=== PATIENT | male | born 1940 | race Caucasian/White ===

== ENCOUNTER 2017-05-29 08:41 | Inpatient (IN) | payer OTHER ==
[2017-05-29] VITALS (12 sets, daily range): BP systolic 104–176; BP diastolic 61–95
[~2017-05-29] VITALS: Ht 170.2 cm; Wt 78.5 kg
[~2017-05-29 08:41] MED LIST: ADVAIR 250-501 EACH; ALBUTEROL SULFAT2 MG PO; ALBUTEROL2.5 MG/0.5 INH; ALPRAZOLAM 0.50.5 M1 PO; ASPIR 8181 MG PO; ATIVAN0.5 MG PO; ATROVENT HFA14 GM INH; AVELOX 400 MG400 M1 PO; AVELOX 400 MG400 MG PO; AZITHROMYCIN 2250 MG PO; BROVANA15 MCG/2 M INH; COLACE100 MG PO; COMBIVENT INH; DUONEB 2.5-0.5 M3 ML INH; ENOXAPARIN40 MG/0.1 SUBQ; FLOMAX0.4 MG PO; FLORASTOR250 MG PO; IPRATROPIU0.2 MG/1 M IH; KLOR-CON 1010 MEQ PO; LASIX 40 MG TAB40 M2 PO; LEVAQUIN 250 M250 MG PO; LEVAQUIN 500 M500 M2 PO; LEVAQUIN 750 M750 MG PO; MIRALAX17 GM PO; MONTELUKAST SOD10 MG PO; MUCINEX TA600 MG/TA2 PO; MUCINEX600 MG PO; NICOTINE TRANSD14 M1 TD; NOVOLOG100 UNIT/1 SUBQ; ONDANSETRON HCL4 M2 PO; PANTOPRAZOLE SO40 M1 PO; PREDNISONE 10 M10 M1 PO; PREDNISONE 10 M10 MG PO; PREDNISONE 20 M20 MG PO; PROTONIX40 M1 PO; PROVENTIL INH; PULMICORT0.5 MG/22 INH; QUESTRAN PACKET4 GM PO; ROBITUSSIN DM118 ML; SINGULAIR 10 MG10 M1 PO; SPIRIVA INH; STERAPRED5 MG PO; SYMBICORT160 MCG/4. INH; TAMSULOSIN HCL0.4 MG PO; TYLENOL325 MG PO; XOPENEX1.25 MG/3 IH
[2017-05-29 09:08] LABS: ABSOLUTE LYMPHOCYTES 0.8 thou/uL (0.8-5.3); ABSOLUTE MONOCYTES 0.6 thou/uL (0.0-1.2); ABSOLUTE NEUTROPHILS 5.2 thou/uL (1.6-8.1); BASOPHILS 0.5 %; EOSINOPHILS 0.7 %; HEMATOCRIT 38.6 % (42.0-52.0); HEMOGLOBIN 12.5 gm/dL (14.0-18.0); LYMPHOCYTES 11.5 %; MCH 26.6 pg (26.0-34.0); MCHC 32.3 g/dL (28.0-37.0); MCV 82.3 fL (80.0-100.0); MONOCYTES 9.4 %; MPV 8.1 fl. (7.2-11.1); NUCLEATED RBCS 0 /100WBC; PLATELET COUNT* 179 thou/uL (150-400); POLYS 77.9 %; RBC 4.69 mil/uL (4.50-6.00); RDW-CV 14.3 % (10.5-14.5); WBC 6.7 thou/uL (4.0-11.0)
[2017-05-29 10:51] LABS: ALBUMIN 3.8 g/dL (3.4-5.0); CALCIUM 8.6 mg/dL (8.5-10.1); POTASSIUM 4.4 mmol/L (3.5-5.1); TOTAL BILIRUBIN 0.9 mg/dL (<0.1-1.0); TOTAL PROTEIN 7.1 g/dL (6.4-8.2)
--- NOTE | 2017-05-29 11:40 | NUR ---
A WHITE MALE AGE 76 ADMITTED VIA CART FROM ER. PT REMANS VENTED.PT RESTLESS. ORDERS FOR PROPOFOL GTT OBTAINED.02 SATS 99 ON FIO2 AT 40%. CONSULTS CALLED FOR PULM AND UROLOGY.SMALL BLOOD LEAKAGE NOTED FROM [facility] OF PENIS DUE TO INABLITY TO INSERT HIDALGO CATHETER. FAMILY SUPPLIED ADMISSION INFO.WILL MONITOR FREQUENTLY.
[2017-05-29 12:15] LABS: BE -5.7 mmol/L (-2 to +3); PCO2 46.5 mmHg (35.0-45.0); PO2 89.6 mmHg (75.0-100.0)
[2017-05-29 12:16] LABS: pH 7.273 (7.340-7.450)
[2017-05-29 13:47] LABS: CALCIUM 8.3 mg/dL (8.5-10.1); POTASSIUM 4.4 mmol/L (3.5-5.1)
[2017-05-29 15:41] LABS: BE -3.1 mmol/L (-2 to +3); HCO3 23.3 mmol/L (22.0-26.0); PCO2 47.4 mmHg (35.0-45.0)
--- NOTE | 2017-05-29 19:41 | NUR ---
PT REMAINS SEDATED ON VENT. DR ROMERO UROLOGY HERE EARLIER AND WAS ABLE TO INSERT A 18 GA COUDE WITH VIET URINE RETURN.PT TURNED THROUGH SHIFT. FAMILY HAS BEEN HERE MOST OF DAY AND HAS AT THIS TIME GONE HOME FOR THE EVENING. WAS GIVEN ICU PHONE NUMBER CARD WITH VISITING HOURS HAND WRITTEN ON CHART.FREQUENT ORAL CARE GIVEN.
[2017-05-29 22:07] LABS: URINE BILIRUBIN NEGATIVE (Negative); URINE BLOOD 1+ (Negative); URINE CLARITY CLEAR; URINE COLOR STRAW; URINE GLUCOSE-RANDOM NEGATIVE (Negative); URINE KETONES 1+ (Negative); URINE LEUKOCYTES-REFLEX TRACE (Negative); URINE NITRITE-REFLEX NEGATIVE (Negative); URINE PROTEIN NEGATIVE (Negative); URINE UROBILINOGEN 0.2 E.U./dl (0.2-1.0)
[2017-05-29 22:39] LABS: CASTS None Seen /LPF (None Seen); SQUAMOUS 0-3 Few /LPF (0-3); URINE WBC-REFLEX 6-15 Few /HPF (0-5)
[2017-05-29 22:40] LABS: BACTERIA-REFLEX 1-9 Few /HPF (None Seen); CRYSTALS None Seen /LPF (None Seen); URINE RBC None Seen /HPF (0-2)
[2017-05-30] VITALS (22 sets, daily range): BP systolic 97–140; BP diastolic 50–84
[2017-05-30 04:03] LABS: CALCIUM 8.5 mg/dL (8.5-10.1); POTASSIUM 4.1 mmol/L (3.5-5.1)
[2017-05-30 04:21] LABS: HEMATOCRIT 37.8 % (42.0-52.0); HEMOGLOBIN 12.2 gm/dL (14.0-18.0); MCH 26.7 pg (26.0-34.0); MCHC 32.3 g/dL (28.0-37.0); MCV 82.9 fL (80.0-100.0); MPV 8.1 fl. (7.2-11.1); NUCLEATED RBCS 0 /100WBC; PLATELET COUNT* 144 thou/uL (150-400); RBC 4.56 mil/uL (4.50-6.00); RDW-CV 14.6 % (10.5-14.5); WBC 3.5 thou/uL (4.0-11.0)
[2017-05-30 04:43] LABS: BE -3.7 mmol/L (-2 to +3); HCO3 22.5 mmol/L (22.0-26.0); PCO2 45.1 mmHg (35.0-45.0); PO2 75.8 mmHg (75.0-100.0); pH 7.315 (7.340-7.450)
--- NOTE | 2017-05-30 05:53 | NUR ---
MINIMAL PROGRESSION TOWARDS GOALS. ASSESSMENTS AND VS OBTAINED, SEE CHARTING. SUPERVISOR VARNISH ON AND TRACING SR. PT REMAINS ON VENT WITH ORDERED SETTINGS. PT REMAINS SEDATED ON PROPOFOL AND VERSED. OG IN AND TI LIS. NO CHANGES IN PT CONDITION THROUGH OUT THE NIGHT.
[2017-05-30 06:57] LABS: ABSOLUTE LYMPHOCYTES 0.6 thou/uL (0.8-5.3); ABSOLUTE MONOCYTES 0.1 thou/uL (0.0-1.2); ABSOLUTE NEUTROPHILS 2.8 thou/uL (1.6-8.1); ATYPICAL LYMPHS 1 %; PLATELET ESTIMATE DECREASED
--- NOTE | 2017-05-30 09:14 | NUR ---
WEANING DOWN ON SEDATION FOR SEDATION VACATION AND TRIAL, PATIENT APPEARS TO BE SEIZING. DR SÁNCHEZ NOTIFIED, HEAD CT ORDERED, WILL SEE WHAT RESULTS SHOW AND REPORT TO DR SÁNCHEZ.
--- NOTE | 2017-05-30 09:17 | NUR ---
UGO BAPTISTE ALSO APPLIED TO PATIENT, TEMP AXILLARY WAS 94.4
--- NOTE | 2017-05-30 13:50 | EKG ---
[place] [address] ELECTROCARDIOGRAM REPORT Name: LUISA BRODY Room: [address] ADM IN M.R.#: [id number] Admission: 05/29/17 Attend Phys: Itz Pace MD Discharge: Date of : 42 Report #: [id number] THIS REPORT FOR: //name// [facility] ED Test Date: 2017-05-29 Test Time: 09:16:44 Pat Name: LUISA BRODY Department: Room: [facility] Gender: M Hospice Entrance Attendant: : 1940 Requested By: Lina Valenzuela Order Number: [id number] MD: William Roque Measurements Intervals [place] Rate: 136 P: 54 AL: 138 QRS: 236 QRSD: 88 T: -12 QT: 292 QTc: 440 Interpretive Statements Sinus tachycardia Low voltage, extremity and precordial leads Nonspecific T abnormalities, inferior leads Inferior infarct age indeterminate possible Baseline wander in lead(s) III Compared to ECG 09/21/2015 07:17:44 Low QRS voltage now present T-wave abnormality now present Electronically Signed On 05-30-2017 13:50:23 RULING TECHNICIAN by William Roque [email or web address] <ELECTRONICALLY SIGNED> By: William Roque MD, FACC 05/30/17 1350 5 5 William Roque MD, FACC /EPI
--- NOTE | 2017-05-30 13:51 | EKG ---
[place] [address] ELECTROCARDIOGRAM REPORT Name: LUISA BRODY Room: [address] ADM IN M.R.#: [id number] Admission: 05/29/17 Attend Phys: Itz Pace MD Discharge: Date of : 42 Report #: [id number] THIS REPORT FOR: //name// [facility] ED Test Date: 2017-05-29 Test Time: 10:05:49 Pat Name: LUISA BRODY Department: Room: [address] Gender: M Gang Supervisor Pipe Lines: STUDENT : 1940 Requested By: Lina Valenzuela Order Number: [id number] MD: William Roque Measurements Intervals [place] Rate: 122 P: 73 ID: 140 QRS: -84 QRSD: 84 T: 51 QT: 317 QTc: 452 Interpretive Statements Sinus tachycardia Inferior infarct age indeterminate Low voltage, extremity leads RSR' in V1 or V2, right VCD or RVH Compared to ECG 09/21/2015 07:17:44 Low QRS voltage now present Right ventricular hypertrophy now present RSR' in V1 or V2 now present Intraventricular conduction delay no longer present ST (T wave) deviation no longer present Electronically Signed On 05-30-2017 13:51:35 SOFTWARE SUPPORT TECHNICIAN by William Roque [email or web address] <ELECTRONICALLY SIGNED> By: William Roque MD, [facility] 05/30/17 1351 1005 1005 William Roque MD, [facility] /EPI
--- NOTE | 2017-05-30 18:18 | NUR ---
PATIENT HAS SOMEWHAT PROGRESSED WELL TOWARDS GOALS. PATIENT SEEMS TO BE HAVING SEZIURES, DR ESTRADA CONSULTED AND HE ORDERED LABS AND EEG AND SAID HE WOULD PUT IN KEPPRA. PATIENT HAS BEAR HUGGER ON DUE TO INABILITY TO KEEP TEMPS ABOVE 94.4 DEGREES FARENHEIT. SEDATION INCREASED AND SEDATION VACATION WAS UNABLE TO BE DONE DUE TO INCREASED SEZIURES WHEN WEANING DOWN OFF VERRSED AND PROPOFOL. VENT AND RESTRAINTS REMAIN IN PLACE. FAMILY HAS BEEN HERE AND UPDATED THROUGHOUT THE DAY. BED IN LOWEST POSITION, BED ALARM ON, BASE REMOVER IN PLACE.
[2017-05-31] VITALS (17 sets, daily range): BP systolic 100–156; BP diastolic 51–74
[2017-05-31 04:25] LABS: HEMATOCRIT 32.3 % (42.0-52.0); MCH 26.8 pg (26.0-34.0); MCV 78.6 fL (80.0-100.0); MPV 7.3 fl. (7.2-11.1); NUCLEATED RBCS 0 /100WBC; PLATELET COUNT* 164 thou/uL (150-400); RBC 4.11 mil/uL (4.50-6.00); RDW-CV 14.6 % (10.5-14.5); WBC 9.5 thou/uL (4.0-11.0)
[2017-05-31 04:36] LABS: CREATININE 0.8 mg/dL (0.6-1.3); POTASSIUM 3.8 mmol/L (3.5-5.1)
--- NOTE | 2017-05-31 05:17 | NUR ---
MINIMAL PROGRESSION TOWARDS GOALS. ASSESSMENT AND VS OBTAINED THROUGH OUT THE NIGHT TEMP WAS OBTAINED HOURLY. AMA BAPTISTE REMAINED ON PT TILL 0400. FISHING VESSEL CAPTAIN ON AND TRACING SR. PT REMAINS SEDATED ON VERSED AND PROPOFOL. OG HAS BROWN, COFFEE GROUND APPEARS AND A SAMPLE WAS SENT TO LAB FOR A GUAIC WHICH CAME BACK POSITIVE. BATH WASN'T GIVEN DUE TO TEMP INSTABILITY. NO SIEZURE ACTIVITY NOTICED THROUGH OUT THE NIGHT. KEPPRA WAS GIVEN ORDERED.
--- NOTE | 2017-05-31 05:40 | NUR ---
VERSED TURNED OFF FOR A 0800 WEANING TRIAL. PROPOFOL STILL RUNNING.
[2017-05-31 05:44] LABS: ABSOLUTE LYMPHOCYTES 0.5 thou/uL (0.8-5.3); ABSOLUTE MONOCYTES 0.1 thou/uL (0.0-1.2); ABSOLUTE NEUTROPHILS 8.9 thou/uL (1.6-8.1); ANISOCYTOSIS 1+; PLATELET ESTIMATE ADEQUATE; POIKILOCYTOSIS 1+
--- NOTE | 2017-05-31 10:00 | NUR ---
SEDATION VACATION-ICU START TIME: 0700 PRE VITALS: 126/64 BP, PULSE 85, RESPIRATIONS 18, O2 SATURATION 93% STOP TIME: 1145 POST VITALS: 140/72 BP, PULSE 82, RESPIRATIONS 30, 02 SATURATION 94% GCS: 8 DURATION [id number] COMMENT: PATIENT WAS AROUSABLE BUT UNABLE TO TRACK WITH HIS EYES AND OR APPLY ANY PRESSURE WITH HAND GRASPS. WILL ATTEMPT WEANING TRIAL AGAIN AT 0800 TOMORROW.
--- NOTE | 2017-05-31 10:33 | CON ---
[facility] [address] [place] [address] CONSULTATION Name: LUISA BRODY Room: [address] IN M.R.#: [id number] Admission: 05/29/17 Attend Phys: Itz Pace MD Discharge: Date of : 42 Report #: [id number] THIS REPORT FOR: //name// CC: Itz Pace [facility] unknown DATE OF SERVICE: 05/29/2017 REQUESTING PHYSICIAN: Izt Pace M.D. REASON FOR CONSULTATION: Acute respiratory failure, on ventilator. DISCUSSION: The patient is a 76-year-old man who has a history of known severe COPD. He is O2 dependent, though I am not sure if he is steroid dependent or not. I believe he is a former smoker. He presented to the Emergency Department this morning via private vehicle with marked increased shortness of breath. Apparently, it started yesterday. He has either BiPAP or Trilogy at home. Apparently had trouble using it last night. He was in marked distress when seen in the Emergency Department. It does not appear that he had complaints of any pain. RT informs me when they saw him, he was in marked distress, was tripoding. Was placed on BiPAP in the ED. It did not improve his condition. He subsequently was intubated by the Emergency Department physician. Follow up chest x-ray was obtained as well. He was transferred over to the Intensive Care Unit prior to the blood gas being obtained. Currently because he is sedated on the ventilator, he is not able to provide any history at this time. Our group has seen him previously when he has been hospitalized here. I know he has been seen in our office in the past, unknown if he has been within over the last year or so. He has very severe COPD. Based on records, I have to review here at [facility], prior spirometry been consistent with very significant obstructive process with his FEV1 of only 29% of predicted (that was at least 3 years ago). He is hypoxic and chronically hypercapnic as well. It appears when he was here in the hospital in the spring of 2015 and seen by our group, a BiPAP or Trilogy was arranged for him. Unknown how compliant he has been with that on a regular basis. Also unknown if he is followed up in our office with that. He has also had lung masses and adenopathy noted. I do not believe he has ever had anything biopsy given the severity of his lung disease. However, imaging done in the past at one point did show improvement in the findings, so not complete resolution. He last had a CT scan done of his chest, which was requested by his family nurse practitioner at almost a year ago. At that time, it did show lesion in the left upper [place] [address] CONSULTATION Name: LUISA BRODY Room: [address] IN .R.#: [id number] Admission: 05/29/17 Attend Phys: Itz Pace MD Discharge: Date of : 42 Report #: [id number] MEDICAL HISTORY: Besides his severe COPD, his history is remarkable for prior hip repair, anxiety, BPH, prior episodes of pneumonia and prior tonsillectomy. At this time, I do not have a complete list of his medications as it has not been verified. Currently, he does have a nebulizer at home with DuoNeb, albuterol tablets 2 mg, guaifenesin, montelukast, Symbicort, Lasix, docusate, Florastor, MiraLax, Protonix, budesonide. SOCIAL HISTORY: Reportedly quit smoking. Had been a heavy smoker in the past. FAMILY HISTORY: Per old notes was negative for heart disease. Positive for lung cancer. 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 No service. Had smoked upwards to 2 packs of cigarettes per day. Old notes indicate his have been a heavy smoker as well. Unknown if she was still smoking or she had secondhand smoke exposure. REVIEW OF SYSTEMS: Unable to obtain from the patient. PHYSICAL EXAMINATION: GENERAL: The patient is seen on the ventilator. He is a thin, chronically ill-appearing man. Currently sedated with propofol and also received some fentanyl. Not responding to me. He is on no pressors. HEENT: Normocephalic and atraumatic. Sclerae are nonicteric. Mucous membranes look dry. He is orally intubated, also has an oral gastric tube in place. NECK: Negative for adenopathy. No JVD is noted. Neck muscles well developed. HEART: Tones are distant. He is mildly tachycardic. No S3 is heard. LUNGS: Reveal breath sounds to be markedly diminished. He has inspiratory and expiratory wheezes heard. Excursion is equal. No subcutaneous emphysema is noted. His peak airway pressures are running on the high side in the mid 30s. ABDOMEN: Soft. Does not appear to have any hepatosplenomegaly noted. Durant catheter is in place. EXTREMITIES: He has no clubbing. Radial pulses are present. Lower extremities are thin. He has some muscle wasting. No definite edema is noted. SKIN: Warm and dry. NEUROLOGIC: He is sedated. LABORATORY AND X-RAY FINDINGS: Blood gases just done on the ventilator. He has a pH 7.27, pCO2 of 47, pO2 of 90, bicarbonate of 21 with a saturation of 93%. That was on assist control rate of 14, Tylenol 500, PEEP of 5, and FiO2 of 40%. On his chemistry, BUN is 17, creatinine 1.0. Potassium is 4.4. Transaminases normal. Lactic acid 2.4. White blood cell count 6700, hemoglobin 12.5, hematocrit 38.6, platelets 179,000. Chest x-ray shows [place] [address] CONSULTATION Name: LUISA BRODY Room: [address] IN [facility].#: [id number] Admission: 05/29/17 Attend Phys: Itz Pace MD Discharge: Date of : 41 Report #: [id number] position. He has marked emphysematous changes noted bilaterally. Some cardiomegaly is noted. Blood cultures have been sent. CURRENT INPATIENT MEDICATIONS: IV propofol, methylprednisolone 62.5 mg IV every 8 hours, Zosyn, DuoNeb every 4 hours, metolazone drip if needed, p.r.n. Zofran. IMPRESSION: 1. Acute respiratory failure superimposed on chronic respiratory failure. Baseline has very severe COPD. He is on O2, though not clear if he is steroid dependent or not. He is on chronic O2 at home as well as some nighttime ventilatory support. 2. Abnormal CT scan. Had left upper lobe mass, which had been increasing in size, associated with adenopathy. Findings were worrisome for malignancy. 3. Past history of tobacco abuse. RECOMMENDATIONS: 1. We will make the ventilator adjustments. We will try dropping his tidal volume increasing rate. Try to keep the airway pressures down. 2. Continue the DuoNeb every 4 hours with p.r.n. albuterol. 3. We will also add Brovana since it appears he may be on Symbicort at home. 4. Continue support. We will see how he does clinically. Hopefully, can work on weaning and successful extubation within the next several days. 5. Long-term if unable to successful weaning and extubate, will need to determine what his long-term wishes were. Given his severe COPD, it certainly be a poor candidate for long-term ventilation, trach, etc. 6. Depending on how he does, will need followup imaging such as CT chest. However, given his severe COPD, certainly a poor candidate for any invasive studies and certainly not a surgical candidate. <ELECTRONICALLY SIGNED> By: Dionna Wells MD 05/31/17 1033 1234 [id number] Huerta MD /nt
--- NOTE | 2017-05-31 10:40 | NUR ---
PT ADMITTED 05/29 WITH RESP FAILURE, WAS INTUBATED IN THE E.D. PT REMAINS ON VENT. SPOKE WITH IN THE ROOM. PT HAS HOME 02 AND TRILOGY FROM [facility]. SHE SAID PT HAS DONE FAIRLY WELL AT HOME IS ABLE TO BE UP AND ABOUT IN THE HOUSE. SOME DIFFICULTY IN KEEPING FOCUSED ON CURRENT COVERSATION SHE TENDS TO START TALKING ABOUT SOMETHING ELSE. SHE SAID SHE HAS NO QUESTIONS ABOUT PLAN OF CARE. PT'S SON WAS HERE EARLIER BUT HAD STEPPED OUT OF THE ROOM. DISCUSSED ROLE OF CASE MGT, WILL CONTINUE TO FOLLOW.
[2017-05-31 11:30] LABS: HEMATOCRIT 33.7 % (42.0-52.0); HEMOGLOBIN 11.2 gm/dL (14.0-18.0); MCH 26.2 pg (26.0-34.0); MCHC 33.2 g/dL (28.0-37.0); MCV 79.1 fL (80.0-100.0); MPV 7.4 fl. (7.2-11.1); RBC 4.27 mil/uL (4.50-6.00); RDW-CV 14.5 % (10.5-14.5); WBC 8.6 thou/uL (4.0-11.0)
[2017-05-31 11:37] LABS: BE -0.6 mmol/L (-2 to +3); HCO3 25.5 mmol/L (22.0-26.0); PCO2 48.4 mmHg (35.0-45.0); PO2 70.8 mmHg (75.0-100.0)
--- NOTE | 2017-05-31 18:00 | NUR ---
PT WEANING TRIAL CHARTED PRIOR. PT REMAINS ON 6 MG/H VERSED AND IS AROUSABLE. PT DID NOT APPEAR TO BE IN ANY PAIN. PROTONIX DRIP AND GI CONSULT INITIATED THIS MORNING. GI WILL DO A EGD TOMORROW MORNING PENDING NEURO'S APPROVAL. THIS INFORMATION WAS RELAYED TO NEURO. NEURO MD CALLED BACK AND SAID THAT GI CAN CALL THEM. ANOTHER PAGE WAS PLACED WITH GI THIS AFTERNOON AND HAVE NOT HEARD BACK. THIS INFORMATION WAS GIVEN TO ONCOMING NURSE. PT'S ASSESSMENT CHARTED. ABDOMEN IS DISTENDED, HYPOACTIVE BOWL SOUNDS, AND STILL CONTINUES TO HAVE COFFEE GROUND SECRETIONS THROUGH OG. PT'S HAS BEEN EDUCATED THROUGHOUT THE DAY. NO SIGNS OF SEIZURE LIKE ACTIVITY TODAY. PPN INITIATED.
[2017-06-01] VITALS (18 sets, daily range): BP systolic 104–160; BP diastolic 57–88
[2017-06-01 03:26] LABS: HEMATOCRIT 35.2 % (42.0-52.0); HEMOGLOBIN 10.7 gm/dL (14.0-18.0); MCH 26.6 pg (26.0-34.0); MCHC 30.4 g/dL (28.0-37.0); MPV 8.4 fl. (7.2-11.1); RBC 4.02 mil/uL (4.50-6.00); RDW-CV 15.8 % (10.5-14.5); WBC 7.5 thou/uL (4.0-11.0)
[2017-06-01 03:31] LABS: ALBUMIN 2.6 g/dL (3.4-5.0); CALCIUM 7.9 mg/dL (8.5-10.1); CREATININE 0.8 mg/dL (0.6-1.3); MAGNESIUM 2.7 mg/dL (1.8-2.4); TOTAL BILIRUBIN 0.4 mg/dL (<0.1-1.0); TOTAL PROTEIN 5.5 g/dL (6.4-8.2)
[2017-06-01 03:50] LABS: MCV 87.6 fL (80.0-100.0)
[2017-06-01 03:55] LABS: HCO3 28.1 mmol/L (22.0-26.0); pH 7.363 (7.340-7.450)
[2017-06-01 03:58] LABS: PCO2 50.5 mmHg (35.0-45.0)
--- NOTE | 2017-06-01 05:07 | NUR ---
PATIENT PROGRESSING TOWARDS GOALS. VERSED GTT ON MAX. WILL START TITRATING DOWN FOR WEANING TRAIL IN A.M. POSSIBLE EDG IN A.M ONCE NEURO APPROVES. PT OG CONTINUES TO HAVE COFFEE GOUND APPEARANCE. SLIGHT DROP IN HGB. BS HAVE BEEN ELEVATED. BP, RR, HR, 02 ALL WNL. URINE OUTPUT ADEQUATE. SPOKE WITH MRS. BRODY ABOUT PT CARE OF PLAN. SHE VOICED UNDERSTANDING, HAD NO FURTHER CONCERNS. GAVE HOURLY ORAL CARE/SUCTION, Q2H HOUR TURNS. SEIZURE PRECAUTIONS IN PLACE. WILL CONTINUE TO MONITOR CLOSELY.
[2017-06-01 14:52] LABS: POTASSIUM 3.9 mmol/L (3.5-5.1)
--- NOTE | 2017-06-01 15:33 | NUR ---
SEDATION VACATION STARTED AT 0500 THIS AM. VERSED WAS WEANED DOWN AND TURNED OFF AT 0500. PATIENT WAS COMPLETELY AWAKE AROUND 1000. BLOOD PRESSURE SLIGHTLY ELEVATED AT 142/71 PULSE 58, RESPIRATIONS 21. PATIENT WAS BRADYCARDIC BEFORE START OF SEDATION VACATION IN THE MID 40S, PRESSURES WERE 137/64 RESPIRATIONS WERE 18. GSC OF 14.
--- NOTE | 2017-06-01 15:42 | NUR ---
PATIENT GETTING EGD AT BEDSIDE AT THIS TIME BY DR BELL.
--- NOTE | 2017-06-01 18:11 | NUR ---
PATIENT HAS PROGRESSED WELL TOWARDS GOALS TODAY. DR BELL DOES NOT WANT OG TUBE REPLACED AFTER EGD TODAY, WEANING TRIAL IN THE AM, VERSED GTT AND PROTONIX GTT D/C, PATIENT STARTED ON PROPOFOL GTT FOR SEDATION. WAS AWAKE AND FOLLOWING ALL COMMANDS THIS AM. NO APPARENT PAIN, NAUSEA OR SHORTNESS OF AIR. IS SOUNDING A BIT WHEEZY. SINUS FLOR TO SINUS RHYTHM MOST OF THE DAY. BED IN LOWEST POSITION, CALL LIGHT IN REACH, WILL CONTINUE TO MONITOR.
[2017-06-02] VITALS (11 sets, daily range): BP systolic 124–180; BP diastolic 69–95
[2017-06-02 02:08] LABS: ADENOVIRUS Negative (Negative); INFLUENZA A Negative (Negative); INFLUENZA B Negative (Negative); METAPNEUMOVIRUS Negative (Negative); PARAINFLUENZA 1 Negative (Negative); PARAINFLUENZA 2 Negative (Negative); PARAINFLUENZA 3 Negative (Negative); RHINOVIRUS Negative (Negative); RSV A Positive (Negative); RSV B Negative (Negative)
[2017-06-02 03:22] LABS: HEMATOCRIT 31.7 % (42.0-52.0); HEMOGLOBIN 10.6 gm/dL (14.0-18.0); MCH 26.7 pg (26.0-34.0); MCHC 33.3 g/dL (28.0-37.0); MPV 7.7 fl. (7.2-11.1); RBC 3.96 mil/uL (4.50-6.00); RDW-CV 14.5 % (10.5-14.5); WBC 7.7 thou/uL (4.0-11.0)
[2017-06-02 03:25] LABS: MCV 80.2 fL (80.0-100.0)
[2017-06-02 03:43] LABS: ALBUMIN 2.4 g/dL (3.4-5.0); CALCIUM 7.9 mg/dL (8.5-10.1); CREATININE 0.7 mg/dL (0.6-1.3); MAGNESIUM 3.1 mg/dL (1.8-2.4); POTASSIUM 4.6 mmol/L (3.5-5.1); TOTAL BILIRUBIN 0.7 mg/dL (<0.1-1.0); TOTAL PROTEIN 5.7 g/dL (6.4-8.2)
--- NOTE | 2017-06-02 07:09 | NUR ---
PATIENT CURRENTLY ON PROPOFOL 10 MCG/KG/MIN. TITRATING TO LOWEST DOSE POSSIBLE FOR WEANING TRIAL THIS MORNING. PT OPENS EYES WITH STIMULATION. VITAL SIGNS ALL WNL. NO CRITICAL A.M LABS. RECEIVED FULL BATH AND BED CHANGE. GAVE Q2H TURNS, ORAL CARE. WILL CONTINUE TO MONITOR CLOSELY. FALL/SEIZURE PRECAUTIONS IN PLACE.
--- NOTE | 2017-06-02 07:27 | CON ---
[address] [address] CONSULTATION Name: LUISA BRODY Janet Room: [address] IN M.R.#: [id number] Admission: 05/29/17 Attend Phys: Itz Pace MD Discharge: Date of : 41 Report #: [id number] THIS REPORT FOR: //name// CC: Itz Pace [facility] unknown DATE OF SERVICE: 05/30/2017 HISTORY OF PRESENT ILLNESS: This is a 76-year-old male patient who is unable to provide any history. History is by talking to the nurses as well as reviewing the records. We will try to reach the family. This patient has a baseline COPD and he is on oxygen as well as BiPAP at home. He was admitted with exacerbation of COPD. He was intubated and put on propofol. When they tried to take it off, did notice that he may be having a seizure on the left side. His EEG was done, which does not show any active epileptiform activity, as I understand from the cotton program technician; it is not downloaded yet. REVIEW OF SYSTEMS: Positive for what looks like a severe COPD. He had pneumonia several times. He has frequent bronchitis. He has a large prostate and that was his 14-point review of systems, which I can get from the record. FAMILY HISTORY: Negative for any seizures, the best I can tell from the record. FAMILY AND SOCIAL HISTORY: Unavailable and we will try to contact the family. PHYSICAL EXAMINATION: NEUROLOGIC: His examination is very limited. He is unresponsive to any painful or verbal stimuli. His pupils are small and nonreactive. He has no meningeal sign. He has no reflex. He is intubated. GENERAL: He is a reasonably well-built individual. VITAL SIGNS: Indicate a blood pressure of 140/71, temperature is 97.6 and his pulse is 63. LABORATORY DATA: He did have a CT scan of the head, which did not show any acute changes. His labs indicate a white count of only 3.5. IMPRESSION: The patient appears to have focal seizure. It is difficult to tell what induces focal seizure. He may have had a stroke, but that is difficult to exclude. Even if he had one, the time of onset will not be clear in this patient and hence, he will not be an intervention candidate. We would like to do an MRI on him if possible. RECOMMENDATIONS: We will talk to the family tomorrow and we will see if an MRI can be done on him some time. I will also talk to you tomorrow. We will look at the EEG and I did start him on Keppra [place] [address] CONSULTATION Name: LUISA BRODY Janet Room: [address] IN M.R.#: [id number] Admission: 05/29/17 Attend Phys: Itz Pace MD Discharge: Date of : 41 Report #: [id number] Thank you very much for this referral. <ELECTRONICALLY SIGNED> By: New Carvalho MD 06/02/17 0727 2104 [id number] Carvalho MD /nt
[2017-06-02 10:09] LABS: BE 2.5 mmol/L (-2 to +3); HCO3 28.1 mmol/L (22.0-26.0); PCO2 47.6 mmHg (35.0-45.0); PO2 63.2 mmHg (75.0-100.0); pH 7.389 (7.340-7.450)
--- NOTE | 2017-06-02 15:49 | NUR ---
CONSULTED TO PLACE PICC FOR PT NEEDING TPN AND SEDATION FOR VENT. ORDER NOTED. MEDICAL NECCESSITY SIGNED BY DR. MENDENHALL DPOA WAS UNAVAILABLE AND PT HAD URGENT NEED. RIGHT UPPER ARM BASILC NOTED TO BE WIDLEY PATENT. A 5FR POWER PICC WAS PLACED PER HOSPITAL POLICY. LINE TRIMMED TO 47CM AND ADVANCED WITH OUT DIFFICULTY. LINE CONFIRMED AT 1CM EXTERNAL WITH SHERLOCK 3CG. LINE SECURED AND RELEASED FOR USE.
[2017-06-03] VITALS (14 sets, daily range): BP systolic 126–152; BP diastolic 67–84
[2017-06-03 05:51] LABS: HEMATOCRIT 32.4 % (42.0-52.0); HEMOGLOBIN 10.6 gm/dL (14.0-18.0); MCH 26.7 pg (26.0-34.0); MCHC 32.6 g/dL (28.0-37.0); MCV 81.9 fL (80.0-100.0); RBC 3.95 mil/uL (4.50-6.00); RDW-CV 14.5 % (10.5-14.5)
[2017-06-03 06:06] LABS: ALBUMIN 2.6 g/dL (3.4-5.0); CALCIUM 7.9 mg/dL (8.5-10.1); CREATININE 0.9 mg/dL (0.6-1.3); POTASSIUM 4.7 mmol/L (3.5-5.1); TOTAL BILIRUBIN 0.8 mg/dL (<0.1-1.0); TOTAL PROTEIN 5.8 g/dL (6.4-8.2)
--- NOTE | 2017-06-03 09:43 | NUR ---
RECEIVED PT FROM NIGHT RN. ASSESSMENT CHARTED. AFEBRILE. TTT TODAY. LUNGS ARE MORE COARSE AND WILL NOT EXTUBATE TODAY. LASIX GIVEN. WILL CONTINUE TO MONITOR.
--- NOTE | 2017-06-03 10:30 | NUR ---
PT REMAINS ON VENT, HASN'T DONE WELL WITH WEANING TRIALS THE LAST TWO DAYS. CASE MGT TO CONTINUE TO FOLLOW.
--- NOTE | 2017-06-03 19:47 | NUR ---
ASSUMED CARE OF PATIENT. GOALS FOR TONIGHT: REST. TURN Q2H. WEAN SEDATION ABLE. PLAN FOR TTT IN AM.
[2017-06-04] VITALS (14 sets, daily range): BP systolic 88–150; BP diastolic 55–84
--- NOTE | 2017-06-04 02:00 | NUR ---
report given to kuldip napier
--- NOTE | 2017-06-04 05:02 | NUR ---
not progressing towards goals. vss. lung sounds worsening. plan for ttt today
[2017-06-04 05:15] LABS: HEMATOCRIT 33.2 % (42.0-52.0); MCH 27.1 pg (26.0-34.0); MCV 82.3 fL (80.0-100.0); MPV 8.2 fl. (7.2-11.1); RBC 4.04 mil/uL (4.50-6.00); RDW-CV 14.6 % (10.5-14.5); WBC 8.6 thou/uL (4.0-11.0)
[2017-06-04 05:43] LABS: ALBUMIN 2.6 g/dL (3.4-5.0); CALCIUM 7.9 mg/dL (8.5-10.1); CREATININE 0.9 mg/dL (0.6-1.3); POTASSIUM 4.7 mmol/L (3.5-5.1); TOTAL BILIRUBIN 0.6 mg/dL (<0.1-1.0); TOTAL PROTEIN 5.9 g/dL (6.4-8.2)
--- NOTE | 2017-06-04 10:15 | NUR ---
INTERDISICIPLINARY ROUNDS: PT REMAINS ON VENT, TTT THIS AM
[2017-06-04 11:39] LABS: BE 8.7 mmol/L (-2 to +3); HCO3 34.3 mmol/L (22.0-26.0); PO2 65.4 mmHg (75.0-100.0); pH 7.441 (7.340-7.450)
[2017-06-04 11:42] LABS: PCO2 51.6 mmHg (35.0-45.0)
--- NOTE | 2017-06-04 18:49 | NUR ---
PT SOMEWHAT PROGRESSING TOWARDS GOALS. TTT TODAY AND SEDATION OFF. ASSESSMENTS CHARTED. AFEBRILE. ADEQUATE URINE OUTPUT. FAMILY AWARE OF POSSIBLE PT OUTCOME.
[2017-06-05] VITALS (13 sets, daily range): BP systolic 91–131; BP diastolic 53–82
--- NOTE | 2017-06-05 04:20 | NUR ---
SOME PROGRESSION TOWARDS GOALS. ASSESSMENT AND VS OBTAINED, THROUGH OUT THE SHIFT. EARLIER IN THE EVENING PT'S BP WAS 80/40 WITH MAP IN THE MID 60'S. RECIEVED A ORDER FOR LEVO IF NEEDED, AND THERE WAS NO NEED TO USE. MEDICAL ASSISTING INSTRUCTOR IS ON AND TRACING SR. PT REMAINS ON THE VENT WITH ORDERS TO TRY A WEANING TRIAL. PROPOFOL WILL BE TURNED OFF AT 0500. PICC REMAINS IN THE UPPER R ARM AND THE DRESSING WAS CHANGED.
--- NOTE | 2017-06-05 05:06 | NUR ---
PROPOFOL STOPPED FOR 5 WEANING TRAIL.
--- NOTE | 2017-06-05 06:18 | NUR ---
WEANING TRIAL DONE. PT IS A WAKE. ASKED PT IF HE WANTED TO STAY A WAKE INSTEAD OF GOING BACK ON SEDATION. WILL CON'T TO MONITOR.
[2017-06-05 06:36] LABS: BE 7.3 mmol/L (-2 to +3); HCO3 33.7 mmol/L (22.0-26.0); pH 7.399 (7.340-7.450)
[2017-06-05 06:38] LABS: PCO2 55.8 mmHg (35.0-45.0)
--- NOTE | 2017-06-05 08:47 | NUR ---
PT ALERT THIS MORNING. PROPOFOL OFF SINCE 0500. PT ABLE TO FOLLOW COMMANDS AND NOD HEAD TO ANSWER QUESTIONS. DR. AGUILLON DISCUSSED WITH PATIENT AND FAMILY THIS MORNING REGARDING CODE STATUS POST EXTUBATION. PT AND FAMILY HAVE DECIDED FOR DNR/DNI. ORDER HAS BEEN ENTERED IN THE COMPUTER.
--- NOTE | 2017-06-05 09:00 | NUR ---
SEDATION VACATION ICU START TIME: 0800 SEDATION STOPPED AT 0500 PRE-VITAL SIGNS: 116/81 BP, 97 HR, RESP 24, 96% O2 STOP TIME: D/C'D PROPOFOL FOR EXTUBATION POST VITALS: N/A GCS:11 DURATION-EXTUBATION IN PROCESS
--- NOTE | 2017-06-05 09:30 | NUR ---
SECURITY CALLED REGARDING PATIENT'S FAMILY. THE FAMILY WAS TOLD SEVERAL TIMES THIS MORNING THAT THERE IS ONLY 2 FAMILY MEMBERS TO THE ROOM AT A TIME. FAMILY CONTINUED TO IGNORE THIS RULE. FAMILY WAS EDUCATED SEVERAL TIMES. SECURITY CALLED ONE OF THE SON'S PLACED THEIR HAND IN THE AIR AND TOLD EVS STAFF "BACK OFF". THIS INFORMATION WAS RELAYED TO NURSING STAFF. ONE FAMILY MEMBER NOTED TO BE YELLING AT SECURITY STATING THAT THIS WAS "UNCALLED FOR" AND PATIENT'S FAMILY TOOK A PICTURE OF SECURITY STAFF'S NAME TAG.
--- NOTE | 2017-06-05 09:35 | NUR ---
PT EXTUBATED AT 0915. PT ON BIPAP CURRENTLY AND TOLERATING WELL. O2 SATURATION 96% NOW. WILL CONTINUE TO MONITOR.
--- NOTE | 2017-06-05 12:46 | NUR ---
PT PROGRESSING TOWARDS GOALS. TRANSFERRED TO ROOM 113 VIA BED BY NURSING STAFF. REPORT GIVEN TO ORTHO NURSE. PT TAKEN OFF OF BIPAP AND PLACED ON 5L NC PRIOR TO TRANSFER. PT TOLERATING WELL WITH O2 SATURATION ABOVE 95%. PT REMAINS NPO AT THIS TIME BUT TOLERATING WATER BY SPONGE OK.
[2017-06-05 13:29] LABS: HEMATOCRIT 35.9 % (42.0-52.0); MCH 27.8 pg (26.0-34.0); MCHC 30.6 g/dL (28.0-37.0); MPV 9.3 fl. (7.2-11.1); RBC 3.96 mil/uL (4.50-6.00); WBC 9.7 thou/uL (4.0-11.0)
[2017-06-05 13:30] LABS: MCV 90.7 fL (80.0-100.0)
[2017-06-05 14:33] LABS: ALBUMIN 2.6 g/dL (3.4-5.0); CALCIUM 7.3 mg/dL (8.5-10.1); MAGNESIUM 2.1 mg/dL (1.8-2.4); POTASSIUM 4.8 mmol/L (3.5-5.1); TOTAL BILIRUBIN 0.8 mg/dL (<0.1-1.0); TOTAL PROTEIN 6.1 g/dL (6.4-8.2)
--- NOTE | 2017-06-05 18:37 | NUR ---
ALERT AND ORIENTED X4. UP WITH MAX ASSIST X3 TO THE CHAIR. PICC IS PATENT AND INFUSING TPN. DENIES PAIN AND NAUSEA SINCE ARRIVING TO UNIT. RECIEVED IV PAIN MEDICATION PRIOR TO TRANSFERRING TO UNIT. CHECKING ON PATIENT FREQUENTLY DUE TO PATIENTS INABILITY TO USE CALL LIGHT. VSS ON 3L O2. HOURLY ROUNDS HAVE BEEN MAINTAINED SINCE ARRIVING ON UNIT. NURSING WILL CONTINUE TO MONITOR.
[2017-06-06 00:11] VITALS: BP 126/78
[2017-06-06 04:10] VITALS: BP 131/73
[2017-06-06 04:52] LABS: HEMATOCRIT 33.2 % (42.0-52.0); HEMOGLOBIN 10.9 gm/dL (14.0-18.0); MCH 26.6 pg (26.0-34.0); MCHC 32.7 g/dL (28.0-37.0); MPV 8.4 fl. (7.2-11.1); RBC 4.07 mil/uL (4.50-6.00); RDW-CV 14.7 % (10.5-14.5); WBC 7.9 thou/uL (4.0-11.0)
[2017-06-06 04:59] LABS: MCV 81.5 fL (80.0-100.0)
[2017-06-06 05:08] LABS: ALBUMIN 2.5 g/dL (3.4-5.0); CALCIUM 7.3 mg/dL (8.5-10.1); CREATININE 0.9 mg/dL (0.6-1.3); MAGNESIUM 2.1 mg/dL (1.8-2.4); POTASSIUM 4.3 mmol/L (3.5-5.1); TOTAL BILIRUBIN 0.7 mg/dL (<0.1-1.0); TOTAL PROTEIN 5.6 g/dL (6.4-8.2)
--- NOTE | 2017-06-06 06:04 | NUR ---
PATIENT HAS BEEN ANXIOUS THROUGHOUT THE NIGHT OFF AND ON. PATIENT IS IRRITABLE AT TIMES AND YELLS OUT PROFANITY. PATIENT HAS BEEN REPOSITONED EVERY 2 HRS BUT PATIENT VERBALIZES NOT WANTING TO BE TURNED AT TIMES. HIDALGO TO DEPENDENT DRAINAGE WITH DARK YELLOW URINE OUTPUT. FECAL TUBE IN PLACE WITH VERY LITTLE FECAL OUTPUT. TRIPLE LUMEN PICC IN RIGHT UPPER ARM-TPN @ 30ML/HR. IV IN LEFT HAND-SL. PATIENT IS A 2-3 PERSON TRANSFER FROM CHAIR TO BED AND PATIENT IS VERY WEAK IN UPPER AND LOWER EXTREMITIES. PATIENT REMAINS NPO AT THIS TIME, BUT DOES REQUEST MOUTH SWABS FREQUENTLY. PATIENT WAS PLACED ON BI-PAP AT HS AND REMAINED ON BI-PAP MOST OF THE NIGHT UNTIL THE EARLY AM WHEN RESPIRATORY TOOK HIM OFF OF THE BI-PAP AND PLACE HIM ON 3L 02 VIA NASAL CANNULA. VSS ON 3L 02 VIA NASAL CANNULA. PATIENT RESTING IN BED AT THIS TIME. FALL PRECAUTIONS IN PLACE. HOURLY ROUNDS MADE. WILL CONTINUE WITH PLAN OF CARE AND NURSING TO MONITOR.
[2017-06-06 10:29] VITALS: BP 117/65
--- NOTE | 2017-06-06 16:07 | NUR ---
ALERT AND ORIENTED X4. UP WITH MAX ASSIST. PICC IS PATENT AND INFUSING TPN. DENIES PAIN AND NAUSEA. TOLERATED CLEAR LIQUID DIET. PATIENTS WEAKNESS IS IMPROVING AND ABLE TO USE THE CALL LIGHT AT TIMES. CHECKED ON PATIENT FREQUENTLY THROUGHOUT SHIFT. VSS ON 3L O2. BIPAP AT BEDSIDE TO USE AT BEDTIME. HOURLY ROUNDS HAVE BEEN MAINTAINED THROUGHOUT SHIFT. CALL LIGHT IS WITHIN REACH. NURSING WILL CONTINUE TO MONITOR.
[2017-06-06 22:11] LABS: HEPATITIS B SURFACE AG Negative (Negative)
[2017-06-07 00:55] VITALS: BP 126/82
[2017-06-07 05:06] VITALS: BP 135/76
[2017-06-07 05:37] LABS: HEMATOCRIT 33.7 % (42.0-52.0); HEMOGLOBIN 11.2 gm/dL (14.0-18.0); MCH 26.9 pg (26.0-34.0); MCHC 33.1 g/dL (28.0-37.0); MCV 81.2 fL (80.0-100.0); MPV 8.7 fl. (7.2-11.1); RBC 4.15 mil/uL (4.50-6.00); RDW-CV 14.6 % (10.5-14.5); WBC 8.5 thou/uL (4.0-11.0)
[2017-06-07 05:54] LABS: ALBUMIN 2.8 g/dL (3.4-5.0); CALCIUM 7.4 mg/dL (8.5-10.1); CREATININE 0.9 mg/dL (0.6-1.3); MAGNESIUM 2.1 mg/dL (1.8-2.4); POTASSIUM 3.8 mmol/L (3.5-5.1); TOTAL PROTEIN 6.3 g/dL (6.4-8.2)
--- NOTE | 2017-06-07 07:54 | NUR ---
PATIENT IS ALERT BUT CONFUSED AND FORGETFUL. VSS ON 5L 02 VIA NASAL CANNULA. PATIENT HAS BEEN RESTLESS DURING THE NIGHT AND YELLS OUT WHEN CONFUSED AT TIMES. NO C/O PAIN. MEDICATION GIVEN ORDERED AND CHARTED ON JUL. TRIPLE LUMEN PICC TO RIGHT UPPER ARM-TPN @ 30ML/HR. IV ABT'S GIVEN WITHOUT ANY ADVERSE SIDE EFFECTS NOTED. FECAL TUBE IN PLACE WITH MINIMAL DRAINAGE. HIDALGO TO DEPENDENT DRAINAGE WITH YELLOW URINE OUTPUT. FALL PRECAUTIONS IN PLACE AND HOURLY ROUNDS MADE. WILL CONTINUE WITH PLAN OF CARE AND NURSING TO MONITOR.
[2017-06-07 15:30] VITALS: BP 149/71
--- NOTE | 2017-06-07 18:03 | NUR ---
RECEIVED [id number] FOR POSSIBLE REHAB ADMISSION. CONSULT HAS BEEN ACKNOWLEDGED BY HUMAN PERFORMANCE TECHNOLOGIST AND DR. TEE. PT ADMITTED WITH RESPIRATORY FAILUE/COPD EXACERBATION NOW DEBILITATED AND WITH ENCEPHALOPATHY. PATIENT WAS EVALUATED BY PT TODAY, OT AND ST EVALUATIONS ARE PENDING. WILL AWAIT EVALUATIONS TO SEE IF PATIENT QUALIFIES FOR ACUTE REHAB AND IF PATIENT CAN TOLERATE 3 HOURS OF THERAPY. THANK YOU FOR THIS CONSULT.
--- NOTE | 2017-06-07 18:54 | NUR ---
ALERT AND ORIENTED X4, FORGETFUL AND CONFUSED AT TIMES. PICC IS PATENT AND INFUSING. PAIN BEING MANAGED WITH PO TYLENOL. DENIES NAUSEA. TOLERATING FULL LIQUID DIET. UP WITH MAX ASSIST X2 TO THE CHAIR. VSS ON ROOM AIR. HOURLY ROUNDS HAVE BEEN MAINTAINED THROUGHOUT SHIFT. CALL LIGHT IS WITHIN REACH. NURSING WILL CONTINUE TO MONITOR.
[2017-06-08 06:59] LABS: HEMATOCRIT 34.6 % (42.0-52.0); HEMOGLOBIN 11.3 gm/dL (14.0-18.0); MCH 26.5 pg (26.0-34.0); MCHC 32.7 g/dL (28.0-37.0); MCV 81.3 fL (80.0-100.0); MPV 8.6 fl. (7.2-11.1); RBC 4.25 mil/uL (4.50-6.00); RDW-CV 14.5 % (10.5-14.5); WBC 9.1 thou/uL (4.0-11.0)
--- NOTE | 2017-06-08 06:59 | NUR ---
PATIENT IS ALERT TO SELF BUT CONFUSED AND FORGETFUL AT TIMES. VSS ON 4L 02 VIA NASAL CANNULA. PATIENTS LUNG SOUNDS WERE WHEEZY AND COARSE AND WET SOUNDING EARLIER IN THE SHIFT. DR. SÁNCHEZ NOTIFIED AND NEW ORDERS GIVEN FOR LASIX AND CHEST X-RAY. PATIENT WAS GIVEN LASIX AND CHARTED. PATIENT SOUNDS MUCH BETTER THIS AM. HIDALGO TO DEPENDENT DRAINAGE WITH YELLOW URINE OUTPUT. PATIENT USES TRILOGY AT HS. RIGHT TRIPLE LUMEN PICC-SL. IV ABT'S GIVEN WITHOUT ANY ADVERSE SIDE EFFECTS NOTED. PATIENT IS INCONTINENT AT TIMES OF BOWEL. JULIO CARE PERFORMED. FALL PRECAUTIONS IN PLACE. HOURLY ROUNDS MADE. WILL CONTINUE WITH PLAN OF CARE AND NURSING TO MONITOR.
[2017-06-08 07:12] LABS: CALCIUM 8.3 mg/dL (8.5-10.1); CREATININE 0.9 mg/dL (0.6-1.3); MAGNESIUM 2.1 mg/dL (1.8-2.4); POTASSIUM 3.6 mmol/L (3.5-5.1); TOTAL BILIRUBIN 1.2 mg/dL (<0.1-1.0); TOTAL PROTEIN 6.5 g/dL (6.4-8.2)
[2017-06-08 08:00] VITALS: BP 153/83
--- NOTE | 2017-06-08 15:50 | NUR ---
PT UP IN CHAIR FOR A FEW HOURS THIS AM. PT TOLERATING PO WELL. ABLE TO FEED SELF AND EATS WITH MUCH ENCOURAGEMENT. PT OCASSIONALLY CONFUSED BUT EASILY REDIRECTED. PT PARTICIPATES IN ALL THERAPIES.
[2017-06-08 16:38] VITALS: BP 135/80
[2017-06-08 20:00] VITALS: BP 109/73
--- NOTE | 2017-06-09 05:03 | NUR ---
ASSUMED CARE OF PATIENT AT APPROXIMATELY 1999. PATIENT WAS A/O X 4 DURING INITIAL ASSESSMENT, BUT BECAME SOMEWHAT CONFUSED THE NIGHT WENT ON. PATIENT WAS PLEASANT AND COOPERATIVE, BUT LOST TRACK OF WHY, OR HOW, HE GOT TO [facility]. PATIENT WAS REPORTED TO BE INCONTINENT OF BOWEL, BUT NO INCIDENCES OCCURRED OVERNIGHT. PATIENT CONTINUES TO BE PLACED ON 4L O2 DURING DAY AND USES A TRILOGY AT THAT HE PLACES HISELF. CRACKLES REMAIN TO BE HEARD IN PATIENT'S LUNGS AT THIS TIME. PERIPHERAL ACCESS CONTINUES TO BE A PICC IN THE PATIENT'S RIGHT AC, AND IS A TRIPLE LUMEN ACCESS. NURSING TO FOLLOW-UP NECESSARY. HOURLY ROUNDING PERFORMED. ALL FALL PRECAUTIONS IN PLACE, INCLUDING CALL LIGHT WITHIN REACH. WILL CONTINUE TO MONITOR CLOSELY.
[2017-06-09 05:11] LABS: ABSOLUTE EOSINOPHILS 0.1 thou/uL (0.0-0.7); ABSOLUTE LYMPHOCYTES 1.3 thou/uL (0.8-5.3); ABSOLUTE MONOCYTES 1.1 thou/uL (0.0-1.2); ABSOLUTE NEUTROPHILS 6.9 thou/uL (1.6-8.1); BASOPHILS 0.3 %; EOSINOPHILS 1.4 %; HEMOGLOBIN 10.5 gm/dL (14.0-18.0); LYMPHOCYTES 14.2 %; MCH 26.9 pg (26.0-34.0); MCHC 32.9 g/dL (28.0-37.0); MCV 81.9 fL (80.0-100.0); MONOCYTES 11.5 %; MPV 8.5 fl. (7.2-11.1); NUCLEATED RBCS 0 /100WBC; PLATELET COUNT* 158 thou/uL (150-400); POLYS 72.6 %; RBC 3.91 mil/uL (4.50-6.00); RDW-CV 14.8 % (10.5-14.5); WBC 9.5 thou/uL (4.0-11.0)
[2017-06-09 05:25] LABS: ALBUMIN 2.7 g/dL (3.4-5.0); CALCIUM 7.9 mg/dL (8.5-10.1); CREATININE 0.9 mg/dL (0.6-1.3); POTASSIUM 3.2 mmol/L (3.5-5.1); TOTAL BILIRUBIN 1.1 mg/dL (<0.1-1.0); TOTAL PROTEIN 5.8 g/dL (6.4-8.2)
[2017-06-09 08:00] VITALS: BP 120/76
[2017-06-09 08:25] VITALS: BP 130/77
[2017-06-09 12:00] VITALS: BP 129/80
--- NOTE | 2017-06-09 15:08 | NUR ---
Following for d/c planning needs. Reviewed chart and spoke with nurse and pt. Pt said that he was planning to go to [facility] on d/c from hospital. Spoke with business continuity coordinator at SNF and they do not have any SNF beds available and do not have anticipated discharges this week. Called spouse and left message.
[2017-06-09 16:00] VITALS: BP 129/83
--- NOTE | 2017-06-09 16:13 | CON ---
[address] [address] CONSULTATION Name: CHRISTAINO BRODYPATRICK Gonzales Room: [address] IN M.R.#: [id number] Admission: 05/29/17 Attend Phys: Itz Pace MD Discharge: Date of : 42 Report #: [id number] THIS REPORT FOR: //name// CC: Itz Pace [facility] unknown DATE OF SERVICE: 05/29/2017 ADDENDUM. I have personally seen and examined the patient and reviewed labs and imaging studies. The patient with history of COPD, who is on BiPAP and O2 dependent. He presents with respiratory failure and is currently intubated. In the NG tube, he was noted to have coffee ground material. His hemoglobin used to be 12 and is 11. He has not had any melenic stool or hematochezia. He is currently on Protonix drip, and labs are pending. We will go ahead and proceed with EGD tomorrow once we have neurology clearance as there is a question if the patient has had a seizure. <ELECTRONICALLY SIGNED> By: Quentin Heredia MD 06/09/17 1613 1536 [id number] Heredia MD /nt
--- NOTE | 2017-06-09 16:13 | CON ---
[address] [address] CONSULTATION Name: LUISA BRODY Janet Room: [address] IN M.R.#: [id number] Admission: 05/29/17 Attend Phys: Itz Pace MD Discharge: Date of : 42 Report #: [id number] THIS REPORT FOR: //name// CC: Itz RIVERA [facility] unknown DICTATED BY: Jody RIVERA DATE OF SERVICE: 05/31/2017 PRIMARY CARE PHYSICIAN: Henrietta James NP Please note at the time of this dictation, the patient was seen and physically examined by myself. REASON FOR CONSULTATION: Anemia and positive gastric occult. HISTORY OF PRESENT ILLNESS: This is a 76-year-old male who presented to the Emergency Room with worsening of his shortness of breath, which he states he has not been feeling very well for the last 4 days prior to admission. He is usually on 3 liters of O2 at night, during the day and BiPAP at night and he was just noticing that this was worsening. He denies any hematemesis or any issues with his stools at this time. It was just noted overnight that through his NG, was some very dark to black emesis noted in the NG tube, unable to obtain any other past medical history as far as if he has ever had any endoscopy studies done in the past. It is noted in our chart that last 09/2016, we received a referral regarding his anemia, but he refused to have any endoscopy studies done at that time. ALLERGIES: No known drug allergies. MEDICATIONS FROM HOME: Aspirin, DuoNeb, Mucinex, albuterol, Singulair, Flomax, Symbicort, Lasix, Colace, Florastor, Protonix, Pulmicort, Tylenol and MiraLax. PAST MEDICAL HISTORY: Frequent episodes of bronchitis, several episodes of pneumonia, long-term COPD requiring oxygen, enlarged prostate and anxiety. PAST SURGICAL HISTORY: Right hip fracture and tonsillectomy. FAMILY HISTORY: Noncontributory. SOCIAL HISTORY: Lives with his at home. Past use of cigarettes, but denies any recent alcohol or illegal drug use at this time. REVIEW OF SYSTEMS: Twelve-point review of [place] [address] CONSULTATION Name: LUISA BRODY Room: [address] IN [facility]#: [id number] Admission: 05/29/17 Attend Phys: Itz Pace MD Discharge: Date of : 42 Report #: [id number] except what is mentioned in the HPI and what is obtained from the chart. PHYSICAL EXAMINATION: VITAL SIGNS: Temperature 36.6, pulse 66, respirations 18, blood pressure 111/51. HEART: Regular rate and rhythm. LUNGS: Diminished and he is currently on the vent. ABDOMEN: Soft and round. Positive bowel sounds in all 4 quadrants with no masses or tenderness noted. NG in place with very dark drainage from the NG. LABORATORY DATA: Hemoglobin on admission was around 12, he is 11.2; hematocrit ____, white count is 8.6, platelets 176. CRP is 27.5. Sodium 146, potassium 3.8, chloride 113, CO2 of 24, BUN is 18, creatinine is 0.8, GFR is 94. Glucose is 151. Chest x-ray negative. Head CT was negative. Abdominal x-ray negative showing OG in the stomach. IMPRESSION: 1. Coffee-ground emesis. OG in place. 2. Anemia. 3. Severe chronic obstructive pulmonary disease, long-term O2 use at home. PLAN: 1. EGD tomorrow if okay with Neurology. 2. Continue his Protonix. 3. Labs, iron studies, B12 and ferritin. Thank you for allowing us to participate in this patient's care. Please do not hesitate to call with any questions in regard to this consult. <ELECTRONICALLY SIGNED> By: Quentin Heredia MD 06/09/17 1613 1232 05Quentin Heredia MD /nt
--- NOTE | 2017-06-09 16:16 | NUR ---
CONTINUING TO FOLLOW PT ALONG WITH DR. TEE. IT IS UNLIKELY THAT PT WOULD BE ABLE TO TOLERATE 3 HOURS OF THERAPY FOR ACUTE REHAB. PT WOULD BENEFIT FROM CONTINUED THERAPIES AT SNF FOR STRENGTHENING AND ENDURANCE. THANK YOU FOR THIS CONSULT.
--- NOTE | 2017-06-09 17:12 | NUR ---
ASSUMED CARE OF PATIENT AFTER MORNING REPORT. ALERT AND ORIENTED X3-4. PATIENT EXHIBITS SOME CONFUSION BUT IS EASILY REDIRECTED AND REORIENTED. ASSESSMENT COMPLETED AND CHARTED. VSS ON 4 LITERS 02. PATIENT HAS SHORTNESS OF AIR UON EXERTION AND REQUIRES EXTRA TIME FOR TASKS. PATIENT HAS HAD NO COMPLAINTS OF PAIN OR NAUSEA THIS SHIFT. PATIENT HAS URINATED TODAY IN THE COMMODE, MINIMAL OUTPUT BUT PATIENT IS NOT CONSUMING MANY LIQUIDS. NO TROUBLE URINATING. PATIENT HAS HAD RT TREATMENTS ORDERED. HOURLY ROUNDS HAVE BEEN MAINTAINED. CALL LIGHT IS WITHIN REACH. NURSING WILL CONTINUE TO MONITOR.
--- NOTE | 2017-06-09 19:06 | EEG ---
[address] [address] EEG STUDY REPORT Name: LUISA BRODY Janet Room: [address] IN M.R.#: [id number] Admission: 05/29/17 Attend Phys: Itz Pace MD Discharge: Date of : 42 Report #: [id number] THIS REPORT FOR: //name// CC: Itz Pace [facility] unknown DATE OF SERVICE: 05/30/2017 This patient's EEG was done for the possibility of seizure. EEG was done by placing the electrodes by standard 10/20 system of electrode placement. Both referential and sequential montages were used for recording. Background activity in this patient's EEG is about 9 Hz and 30 microvolt. It is intermixed with theta range slowing. Photic stimulation is unremarkable. Throughout the record no active epileptiform activity was noticed. IMPRESSION: Moderately abnormal EEG because it is intermixed with theta range slowing on both sides. There is a nonspecific abnormality, which can occur with encephalopathy, effect of psychotropic medication, dementia, etc. Clinical correlation is recommended. Thank you very much for this referral. <ELECTRONICALLY SIGNED> By: New Carvalho MD 06/09/17 1906 0720 [id number] Carvalho MD /nt
[2017-06-10 04:10] LABS: HEMATOCRIT 30.5 % (42.0-52.0); HEMOGLOBIN 10.2 gm/dL (14.0-18.0); MCH 27.1 pg (26.0-34.0); MCHC 33.4 g/dL (28.0-37.0); MCV 81.1 fL (80.0-100.0); MPV 8.3 fl. (7.2-11.1); RBC 3.76 mil/uL (4.50-6.00); RDW-CV 14.5 % (10.5-14.5); WBC 7.6 thou/uL (4.0-11.0)
[2017-06-10 04:21] LABS: ALBUMIN 2.6 g/dL (3.4-5.0); CREATININE 0.9 mg/dL (0.6-1.3); POTASSIUM 3.1 mmol/L (3.5-5.1); TOTAL BILIRUBIN 0.9 mg/dL (<0.1-1.0); TOTAL PROTEIN 5.6 g/dL (6.4-8.2)
--- NOTE | 2017-06-10 04:54 | NUR ---
PATIENT HAS RESTED WELL THROUGHOUT THE NIGHT. NO C/O PAIN. LUNGS ARE STILL WHEEZY AND COARSE SOUNDING. VSS ON 4L 02 VIA NASAL CANNULA. PATIENT USES TRILOGY AT HS. PATIENT USES BEDSIDE URINAL BUT IS INCONTINENT AT TIMES. TRIPLE LUMEN PICC TO RIGHT UPPER ARM-SL. IV ABT GIVEN WITHOUT ANY ADVERSE SIDE EFFECTS NOTED. PATIENT INSTRUCTED TO USE CALL LIGHT WHEN NEEDING ASSISTANCE. HOURLY ROUNDS MADE. WILL CONTINUE WITH PLAN OF CARE AND NURSING TO MONITOR.
[2017-06-10 07:45] VITALS: BP 116/71
--- NOTE | 2017-06-10 14:39 | NUR ---
CM SPOKE TO THE PATIENT AND HIS TO INFORM THAT THE ACUTE INPATIENT REHAB HAD DENIED ADMISSION, AND TO DISCUSS CHOICE OF SNF. CM PROVIDED PATIENT AND WITH SNF LIST AND THEY CHOSE THE [facility]. YVES SPOKE TO HEATHER AT THE [facility] TO INFORM OF THE REFERRAL FOR SKILLED AND FAXED THE PATIENTS CLINICAL INFO. HEATHER RETURNED CALL AND STATES THAT THE FACILITY IS ABLE TO ACCEPT THE PATIENT TO THE [facility] PENDING INSURANCE AUTH. CM WILL REMAIN AVAILABLE TO ASSIST AND FOLLOW NEEDED.
[2017-06-10 16:04] VITALS: BP 113/69
--- NOTE | 2017-06-10 17:37 | NUR ---
ASSUMED CARE OF PATIENT AFTER MORNING REPORT. ALERT AND ORIENTED X3-4. ASSESSMENT COMPLETED AND XHARTED. VSS ON 4 LITERS 02. PATIENT DISPLAYS SOME CONFUSION BUT IS EASILY REORIENTED. PATIENT HAS HAD NO COMPLAINTS OF PAIN OR NAUSEA THIS SHIFT. BREATHING TREATMENTS AND ANTIBIOTICS ADMINISTERED ORDERED. COUGH IS STILL NON PRODUCTIVE BUT SOUNDS MORE LOOSE. HOURLY ROUNDS HAVE BEEN MAINTAINED. CALL LIGHT IS WITHIN REACH. NURSING WILL CONTINUE TO MONITOR.
[2017-06-10 20:00] VITALS: BP 111/72
[2017-06-11] VITALS: BP 118/69
--- NOTE | 2017-06-11 04:40 | NUR ---
PATIENT A/O X 4, BUT FORGETFUL. NIGHT GOES ON, PATIENT BECOMES A/O X 3-4, BUT IS EASILY REDIRECTED, AND REMAINS PLEASANT. PATIENT CONTINUES TO HAVE A LOOSE, NON-PRODUCTIVE COUGH WTIH DIMINISHED LUNG SOUNDS. PATIENT HAD NO C/O ANY KIND DURING NIGHT, INCLUDING THOSE OF PAIN/DISCOMFORT. PATIENT IS HOPEFUL THAT HE WILL BE DISCHARGED TODAY (06/11/17) TO A SKILLED FACILITY-INSURANCE IS PENDING. HOURLY ROUNDING PERFORMED. NURSING TO FOLLOW-UP NECESSARY. ALL FALL PRECAUTIONS IN PLACE, INCLUDING CALL LIGHT WTIHIN REACH. WILL CONTINUE TO MONITOR CLOSELY.
[2017-06-11 06:58] LABS: HEMATOCRIT 27.1 % (42.0-52.0); MCHC 33.1 g/dL (28.0-37.0); MCV 81.8 fL (80.0-100.0); MPV 8.5 fl. (7.2-11.1); RBC 3.31 mil/uL (4.50-6.00); RDW-CV 14.6 % (10.5-14.5); WBC 7.3 thou/uL (4.0-11.0)
[2017-06-11 07:11] LABS: ALBUMIN 2.5 g/dL (3.4-5.0); CREATININE 0.9 mg/dL (0.6-1.3); POTASSIUM 3.2 mmol/L (3.5-5.1); TOTAL BILIRUBIN 0.8 mg/dL (<0.1-1.0); TOTAL PROTEIN 5.4 g/dL (6.4-8.2)
[2017-06-11] MEDS ORDERED: MUCINEX600 MG PO (10:44)
[2017-06-11 10:54] VITALS: BP 118/69
[2017-06-11] MEDS ORDERED: XANAX 0.5 MG0.5 MG PO (11:02)
--- NOTE | 2017-06-11 12:10 | NUR ---
CM SPOKE TO ADMISSIONS AT THE [facility] AND THEY INFORM THAT THEY HAVE RECIEVED INSURANCE AUTH FOR THE PATIENT AND WILL PROVIDE TRANSPORTATION AT 1130. CM SPOKE TO THE PATIENT AND HIS TO INFORM OF THIS AND THEY ARE IN AGREEMENT. CM SPOKE TO THE RN IN-CHARGE OF THE PATIENT TO INFORM OF OF THE INSURANCE AUTH, TIME OF TRANSPORT, AND WHERE TO CALL REPORT. RN IN AGREEMENT. CM WILL REMAIN AVIALABLE TO ASSIST AND FOLLOW NEEDED.
--- NOTE | 2017-06-11 13:35 | NUR ---
PATIENT LEFT UNIT AT 1130. ALERT AND ORIENTED X4. UP WITH ASSIST X1 WITH WALKER AND GAIT BELT. PICC LINE DC'D. DENIES PAIN AND NAUSEA. ATTENDED PHYSICAL THERAPY THIS AM. ALL PERSONAL ITEMS LEFT WITH PATIENT. DISCHARGE INSTRUCTIONS AND PRESCRIPTIONS SENT WITH PATIENT TO FACITLY. VSS ON 4L O2. HOURLY ROUNDS HAVE BEEN MAINTAINED THROUGHOUT SHIFT. REPORT GIVEN TO NURSE AT THE [facility].
[2017-06-11 13:39] VITALS: BP 118/69
== END 2017-06-11 11:30 | DRG 207 ==
LOC: M.ERS 08:41 → M.ICU 10:10 → M.TBA-ER 10:10 → M.ICU 10:50 → M.ORTHSURG 06-05 13:43
PROVIDERS: Family Medicine; Internal Medicine; Internal Medicine Pulmonary Disease; Nurse Practitioner Adult Health; Personal Emergency Response Attendant; ADMIT Internal Medicine
PROC: 0BH17EZ Insertion of Endotracheal Airway into Trachea, Via Natural or Artificial Opening (ICD-10-PCS; principal; 2017-05-29)
PROC: 5A1955Z Respiratory Ventilation, Greater than 96 Consecutive Hours (ICD-10-PCS; principal; 2017-05-29)
PROC: 0DJ08ZZ Inspection of Upper Intestinal Tract, Via Natural or Artificial Opening Endoscopic (ICD-10-PCS; 2017-06-01)
PROC: 05HB33Z Insertion of Infusion Device into Right Basilic Vein, Percutaneous Approach (ICD-10-PCS; 2017-06-02)
PROC: 4A00X4Z Measurement of Central Nervous Electrical Activity, External Approach (ICD-10-PCS; 2017-06-02)
DX: J96.21 Acute and chronic respiratory failure with hypoxia (principal); J12.1 Respiratory syncytial virus pneumonia; G93.40 Encephalopathy, unspecified; J44.0 Chronic obstructive pulmonary disease with (acute) lower respiratory infection; R65.10 Systemic inflammatory response syndrome (SIRS) of non-infectious origin without acute organ dysfunction; J44.1 Chronic obstructive pulmonary disease with (acute) exacerbation; E87.4 Mixed disorder of acid-base balance; E87.0 Hyperosmolality and hypernatremia; E44.0 Moderate protein-calorie malnutrition; F41.9 Anxiety disorder, unspecified; N40.0 Benign prostatic hyperplasia without lower urinary tract symptoms; D64.9 Anemia, unspecified; R59.9 Enlarged lymph nodes, unspecified; N35.9 Urethral stricture, unspecified; R56.9 Unspecified convulsions; K20.9 Esophagitis, unspecified; R74.0 Nonspecific elevation of levels of transaminase and lactic acid dehydrogenase [LDH]; K80.20 Calculus of gallbladder without cholecystitis without obstruction; I95.9 Hypotension, unspecified; T85.898A Other specified complication of other internal prosthetic devices, implants and grafts, initial encounter; Y83.8 Other surgical procedures as the cause of abnormal reaction of the patient, or of later complication, without mention of misadventure at the time of the procedure; Y92.89 Other specified places as the place of occurrence of the external cause; Z68.27 Body mass index [BMI] 27.0-27.9, adult; Z87.81 Personal history of (healed) traumatic fracture; Z99.81 Dependence on supplemental oxygen; Z87.891 Personal history of nicotine dependence; Z79.82 Long term (current) use of aspirin; Z79.899 Other long term (current) drug therapy; Z83.3 Family history of diabetes mellitus; Z80.1 Family history of malignant neoplasm of trachea, bronchus and lung

== ENCOUNTER 2018-09-26 11:22 | Emergency (ER) | payer OTHER ==
[~2018-09-26] VITALS: Ht 170.2 cm; Wt 74.8 kg
[~2018-09-26 11:22] MED LIST changes: +XANAX 0.5 MG0.5 MG PO
[2018-09-26] MEDS ORDERED: ZOLOFT25 MG PO (11:39)
[2018-09-26 12:16] LABS: ABSOLUTE EOSINOPHILS 0.1 thou/uL (0.0-0.7); ABSOLUTE LYMPHOCYTES 0.6 thou/uL (0.8-5.3); ABSOLUTE MONOCYTES 0.5 thou/uL (0.0-1.2); ABSOLUTE NEUTROPHILS 6.6 thou/uL (1.6-8.1); BASOPHILS 0.5 %; EOSINOPHILS 1.2 %; HEMATOCRIT 34.7 % (42.0-52.0); HEMOGLOBIN 11.2 gm/dL (14.0-18.0); LYMPHOCYTES 7.7 %; MCH 25.6 pg (26.0-34.0); MCHC 32.3 g/dL (28.0-37.0); MCV 79.3 fL (80.0-100.0); MONOCYTES 6.1 %; MPV 7.3 fl. (7.2-11.1); NUCLEATED RBCS 0 /100WBC; PLATELET COUNT* 215 thou/uL (150-400); POLYS 84.5 %; RBC 4.37 mil/uL (4.50-6.00); RDW-CV 15.1 % (10.5-14.5); WBC 7.9 thou/uL (4.0-11.0)
[2018-09-26 12:28] LABS: ANION GAP 8 mmol/L (7-16); BUN 12 mg/dL (7-18); CALCIUM 8.7 mg/dL (8.5-10.1); CHLORIDE 102 mmol/L (98-107); CO2 31 mmol/L (21-32); GLUCOSE 97 mg/dL (70-99); POTASSIUM 4.1 mmol/L (3.5-5.1); SODIUM 141 mmol/L (136-145)
[2018-09-26 12:34] LABS: BE 2.3 mmol/L (-2 to +3); PCO2 47.3 mmHg (35.0-45.0); PO2 113.4 mmHg (75.0-100.0); pH 7.388 (7.340-7.450)
[2018-09-26 12:39] LABS: ALBUMIN 3.5 g/dL (3.4-5.0); ALKALINE PHOSPHATASE 114 U/L (46-116); LIPASE 97 U/L (73-393); NT-PRO BRAIN NAT PEPTIDE 98 pg/mL (<300); SGOT 13 U/L (15-37); SGPT 16 U/L (30-65); TOTAL BILIRUBIN 1.1 mg/dL (<0.1-1.0); TOTAL PROTEIN 6.9 g/dL (6.4-8.2); TROPONIN-I LEVEL <0.06 ng/mL (<0.06)
[2018-09-26] MEDS ORDERED: PREDNISONE 5 MG5 MG PO (13:09)
[2018-09-26 13:23] VITALS: BP 117/62
--- NOTE | 2018-09-26 17:37 | EKG ---
[place] [address] ELECTROCARDIOGRAM REPORT Name: LUISA BRODY Room: [facility]#: [id number] Admission: 09/26/18 Attend Phys: Discharge: 09/26/18 Date of : 42 Report #: [id number] THIS REPORT FOR: //name// [facility] ED Test Date: 2018-09-26 Test Time: 12:02:20 Pat Name: LUISA BRODY Department: Room: Gender: M Data Operations Leader: KIMANI : 1940 Requested By: Jose Elias Orosco Order Number: [id number] MD: William Roque Measurements Intervals [place] Rate: 78 P: -82 IN: 134 QRS: -82 QRSD: 89 T: 26 QT: 401 QTc: 457 Interpretive Statements Sinus rhythm Left anterior fascicular block Low voltage, extremity leads Artifact in lead(s) III,aVL,aVF,V1 Compared to ECG 05/29/2017 10:05:49 Left anterior fascicular block now present Sinus tachycardia no longer present Myocardial infarct finding no longer present Right ventricular hypertrophy no longer present Electronically Signed On 09-26-2018 17:36:51 CDT by William Roque [email or web address] <ELECTRONICALLY SIGNED> By: William Roque MD, FAC 09/26/18 1736 1202 120 William Roque MD, [facility] /EPI
== END 2018-09-26 13:24 | disposition home or self-care (01) ==
LOC: M.ERS 11:22
PROVIDERS: Emergency Medicine
DX: J44.1 Chronic obstructive pulmonary disease with (acute) exacerbation (principal); F41.9 Anxiety disorder, unspecified; N40.0 Benign prostatic hyperplasia without lower urinary tract symptoms; F17.210 Nicotine dependence, cigarettes, uncomplicated

== ENCOUNTER 2020-11-30 10:46 | Inpatient (IN) | payer MEDICARE ==
[~2020-11-30] VITALS: Ht 170.2 cm; Wt 53.6 kg
[~2020-11-30 10:46] MED LIST changes: +PREDNISONE 5 MG5 MG PO; +ZOLOFT25 MG PO
[2020-11-30 10:52] VITALS: BP 124/82
[2020-11-30] MEDS ORDERED: PROAIR HFA8.5 GM INH (11:09)
[2020-11-30 11:25] LABS: ABSOLUTE BASOPHILS 0.1 thou/uL (0.0-0.2); ABSOLUTE EOSINOPHILS 0.1 thou/uL (0.0-0.7); ABSOLUTE LYMPHOCYTES 0.7 thou/uL (0.8-5.3); ABSOLUTE MONOCYTES 0.5 thou/uL (0.0-1.2); BASOPHILS 0.9 %; EOSINOPHILS 1.3 %; HEMATOCRIT 33.4 % (42.0-52.0); HEMOGLOBIN 11.6 gm/dL (14.0-18.0); LYMPHOCYTES 11.5 %; MCH 29.4 pg (26.0-34.0); MCHC 34.6 g/dL (28.0-37.0); MONOCYTES 8.2 %; MPV 7.2 fl. (7.2-11.1); NUCLEATED RBCS 0 /100WBC; PLATELET COUNT* 207 thou/uL (150-400); POLYS 78.1 %; RBC 3.93 mil/uL (4.50-6.00); RDW-CV 13.8 % (10.5-14.5); WBC 6.4 thou/uL (4.0-11.0)
[2020-11-30 11:33] LABS: CALCIUM 8.1 mg/dL (8.5-10.1); CREATININE 0.6 mg/dL (0.6-1.3)
[2020-11-30 11:38] LABS: ALBUMIN 3.5 g/dL (3.4-5.0); TOTAL BILIRUBIN 0.8 mg/dL (<0.1-1.0); TOTAL PROTEIN 6.3 g/dL (6.4-8.2)
[2020-11-30 12:13] LABS: URINE BLOOD 3+ (Negative); URINE CLARITY TURBID; URINE COLOR BROWN; URINE GLUCOSE-RANDOM NEGATIVE (Negative); URINE KETONES 1+ (Negative); URINE LEUKOCYTES-REFLEX TRACE (Negative); URINE NITRITE-REFLEX NEGATIVE (Negative); URINE PROTEIN 3+ (Negative)
[2020-11-30 12:14] LABS: ICTOTEST (BILI CONFIRMATORY) Negative (Negative); URINE BILIRUBIN 1+ (Negative)
[2020-11-30 12:19] LABS: SQUAMOUS 0-3 Few /LPF (0-3); URINE RBC >20 Many /HPF (0-2)
[2020-11-30 12:20] LABS: CASTS None Seen /LPF (None Seen); CRYSTALS None Seen /LPF (None Seen)
[2020-11-30 12:21] LABS: BACTERIA-REFLEX >30 Many /HPF (None Seen)
[2020-12-01 09:30] VITALS: BP 121/45
--- NOTE | 2020-12-01 11:30 | NUR ---
DR. CRISOSTOMO HERE TO PUT IN HIDALGO CATH. HAD TO DIOLATE PT'S URETHRA TO GET HIDALGO IN. PT HAD STRICTURE. 16 COUDA CATH. PUT IN BY DR. CRISOSTOMO. STAT LOCK TO RIGHT LEG. DARK BROWN URINE NOTED.
[2020-12-01 13:30] VITALS: BP 93/53
[2020-12-01 15:41] LABS: ABSOLUTE EOSINOPHILS 0.1 thou/uL (0.0-0.7); ABSOLUTE LYMPHOCYTES 0.7 thou/uL (0.8-5.3); ABSOLUTE MONOCYTES 0.5 thou/uL (0.0-1.2); ABSOLUTE NEUTROPHILS 4.7 thou/uL (1.6-8.1); BASOPHILS 0.6 %; EOSINOPHILS 1.6 %; HEMATOCRIT 30.5 % (42.0-52.0); LYMPHOCYTES 11.5 %; MCH 28.6 pg (26.0-34.0); MCHC 32.7 g/dL (28.0-37.0); MCV 87.3 fL (80.0-100.0); MONOCYTES 7.5 %; MPV 7.6 fl. (7.2-11.1); NUCLEATED RBCS 0 /100WBC; PLATELET COUNT* 163 thou/uL (150-400); POLYS 78.8 %; RBC 3.49 mil/uL (4.50-6.00); RDW-CV 13.9 % (10.5-14.5)
[2020-12-01 16:07] LABS: ALBUMIN 2.6 g/dL (3.4-5.0); CALCIUM 7.9 mg/dL (8.5-10.1); CREATININE 0.8 mg/dL (0.6-1.3); MAGNESIUM 1.6 mg/dL (1.8-2.4); POTASSIUM 4.3 mmol/L (3.5-5.1); TOTAL BILIRUBIN 0.3 mg/dL (<0.1-1.0); TOTAL PROTEIN 5.1 g/dL (6.4-8.2)
[2020-12-01 17:30] VITALS: BP 95/44
[2020-12-01 21:25] VITALS: BP 100/50
[2020-12-01 22:17] VITALS: BP 101/47
[2020-12-02] VITALS: BP 98/52
[2020-12-02 04:00] VITALS: BP 100/55
--- NOTE | 2020-12-02 05:27 | NUR ---
REPORT RECIEVED FROM ER. PT ORIENTED TO ROOM, CALL LIGHT SHOWN, FALL AGREEMENT WENT OVER, PT STATED UNDERSTANDING. ADMISSION DOCUMENTED. MEDS GIVEN PER E-MAR. NO REPORTS OF PAIN. FALL PRECAUTIONS IN PLACE. HIDALGO IN PLACE TO DEPENDANT DRAINAGE WITH BROWN OUTPUT. PT ON 4L NC, PT STATES THIS IS HIS HOME O2, AND THAT HE IS SUPOSED TO SLEEP WITH A TRILOGY BUT IS CURRENTLY NOT USING IT UNTIL HE "KNOWS IF IT IS RECALLED". PT ABLE TO MAKE NEEEDS KNOWN. WILL CONTINUE WITH PLAN OF CARE.
[2020-12-02 07:55] VITALS: BP 112/66
[2020-12-02 12:00] VITALS: BP 97/49
[2020-12-02 12:31] LABS: CREATININE 0.6 mg/dL (0.6-1.3); MAGNESIUM 1.7 mg/dL (1.8-2.4); POTASSIUM 4.3 mmol/L (3.5-5.1)
--- NOTE | 2020-12-02 13:56 | EKG ---
[place] [address] ELECTROCARDIOGRAM REPORT Name: CHRISTIANO BRODYPATRICK Gonzales Room: [address] ADM IN M.R.#: [id number] Admission: 11/30/20 Attend Phys: Foster Cobb Discharge: Date of : 42 Date of Service: 11/30/20 1054 Report #: [id number] THIS REPORT FOR: //name// [facility] ED Test Date: 2020-11-30 Test Time: 10:54:28 Pat Name: LUISA BRODY Department: Room: [facility] Gender: M Hospital Cna: STUDENT : 1940 Requested By: Luz Torres Order Number: [id number] MD: Brody Stewart Measurements Intervals [place] Rate: 92 P: 0 CA: 143 QRS: 257 QRSD: 85 T: 40 QT: 342 QTc: 424 Interpretive Statements Sinus rhythm Atrial premature complex Left anterior fascicular block Borderline low voltage, extremity leads Compared to ECG 09/26/2018 12:02:20 Atrial premature complex(es) now present Electronically Signed On 12-02-2020 13:56:45 CDT by Brody Stewart [email or web address] <ELECTRONICALLY SIGNED> By: Brody Stewart MD, FACC 12/02/20 1356 1054 1054 Brdoy Stewart MD, FAC /EPI
--- NOTE | 2020-12-02 14:41 | NUR ---
Pt is A&O. Resides at home with , in room at bedside. Pt has a walker, cane and wc at home, but states that he does not currently use any DME. Pt admits that he only ambulates short distances. Pt wears home o2 through [employer], per , they need [employer] to bring a tank at dc. Pt states that he has been wearing 4L at home continuous. Per [employer], Pt only has set up for NOC use, Pt will need an ex ox at dc to determine if he now needs o2 during the day, updated Dr. Pt has a trilogy and Inogen. No hx of HH. Hx of SNF. Pt plans on returning home at dc, no needs anticipated. Per Pt, he has a dog at home that bites strangers, so is declining HH. to transport at dc. Anticipate dc tomorrow.
--- NOTE | 2020-12-02 15:34 | 2DMMODE ---
[place] [address] 2 D/M-MODE ECHOCARDIOGRAM Name: LUISA BRODY Janet Room: [address] IN [place]#: [id number] Admission: 11/30/20 Attend Phys: Foster Cobb Discharge: Date of : 42 Date of Service: 12/02/20 1533 Report #: [id number] THIS REPORT FOR: cc: Henrietta James Catherine FNP Holkins,Brody Rojas MD [facility] ~ APPROVED REPORT Study performed: 12/02/2020 14:52:53 EXAM: Comprehensive 2D, Doppler, and color-flow Echocardiogram Patient Location: In-Patient Room #: [facility] [place] Status: routine BSA: 1.59 HR: 85 bpm BP: 97/49 mmHg Rhythm: NSR Other Information Study Quality: Good Indications Dyspnea 2D Dimensions IVSd: 8.17 (7-11mm) LVOT Diam: 19.73 (18-24mm) LVDd: 39.85 mm PWd: 7.10 (7-11mm) LVDs: 18.03 (25-40mm) Aortic Root: 34.49 mm Aortic Valve AoV Peak Jai.: 1.56 m/s AO Peak Gr.: 9.74 mmHg LVOT Max P.84 mmHg AO Mean Gr.: 5.13 mmHg LVOT Mean P.78 mmHg LVOT Max V: 1.10 m/s AO V2 VTI: 29.82 cm LVOT Mean V: 0.78 m/s TACOS (VTI): 2.42 cm2 LVOT V1 VTI: 23.62 cm Mitral Valve E/A Ratio: 1.18 MV Decel. Time: 213.25 ms MV E Max Jai.: 1.08 m/[place] [address] 2 D/M-MODE ECHOCARDIOGRAM Name: LUISA BRODY Room: [address] IN [facility]#: [id number] Admission: 11/30/20 Attend Phys: Foster Cobb Discharge: Date of : 42 Date of Service: 12/02/20 1533 Report #: [id number] MV PHT: 61.84 ms MVA (PHT): 3.56 cm2 TDI E/Lateral E': 8.31 E/Medial E': 9.00 Medial E' Jai.: 0.12 m/s Lateral E' Jai.: 0.13 m/s Pulmonary Valve PV Peak Jai.: 0.84 m/s PV Peak Gr.: 2.84 mmHg Left Ventricle The left ventricle is normal size. There is normal LV segmental wall motion. There is normal left ventricular wall thickness. Left ventricular systolic function is normal. The left ventricular ejection fraction is within the normal range. LVEF is 65%. The left ventricular diastolic function is normal. Right Ventricle The right ventricle is normal size. The right ventricular systolic function is normal. Atria The left atrium size is normal. The right atrium size is normal. Aortic Valve Mild aortic valve sclerosis. No aortic regurgitation is present. There is no aortic valvular stenosis. Mitral Valve The mitral valve is normal in structure. There is no mitral valve regurgitation noted. No evidence of mitral valve stenosis. Tricuspid Valve The tricuspid valve is normal in structure. Unable to assess PA pressure. Trace tricuspid regurgitation. Pulmonic Valve The pulmonary valve is normal in structure. There is no pulmonic valvular regurgitation. Great Vessels The aortic root is normal in size. IVC is normal in size and collapses >50% [place] [address] 2 D/M-MODE ECHOCARDIOGRAM Name: LUISA BRODY Room: [address] IN [facility]#: [id number] Admission: 11/30/20 Attend Phys: Foster Cobb Discharge: Date of : 42 Date of Service: 12/02/20 1533 Report #: [id number] Pericardium There is no pericardial effusion. <Conclusion> The left ventricle is normal size. There is normal left ventricular wall thickness. Left ventricular systolic function is normal. The left ventricular ejection fraction is within the normal range. LVEF is 65%. The left ventricular diastolic function is normal. The right ventricle is normal size. The left atrium size is normal. Mild aortic valve sclerosis. No aortic regurgitation is present. There is no aortic valvular stenosis. The mitral valve is normal in structure. The tricuspid valve is normal in structure. IVC is normal in size and collapses >50% with inspiration. There is no pericardial effusion. There is normal LV segmental wall motion. <ELECTRONICALLY SIGNED> By: Brody Stewart MD, FACC 12/02/20 1533 1533 1533 Brody Stewart MD, FACC /INF
[2020-12-02 16:00] VITALS: BP 101/49
--- NOTE | 2020-12-02 16:31 | NUR ---
PT REMAINED ALERT AND ORIENTED. PT VERY TIRED THIS SHIFT, PT STATED HE DID NOT SLEEP WELL LAST NIGHT. PT C/O THICK MUCUS, MEDS GIVEN PRN ORDERED. FALL RISK PRECAUTIONS IN PLACE. HOURLY ROUNDING COMPLETED.
[2020-12-02 22:00] VITALS: BP 108/64
[2020-12-03 01:16] VITALS: BP 110/65
[2020-12-03 04:32] VITALS: BP 169/64
[2020-12-03 07:36] VITALS: BP 110/64
[2020-12-03] MEDS ORDERED: SPIRIVA INH (13:08)
[2020-12-03] MEDS ORDERED: PREDNISONE 10 M10 MG PO (13:08)
[2020-12-03] MEDS ORDERED: MIRALAX17 GM PO (13:08)
[2020-12-03] MEDS ORDERED: AMPICILLIN TRI250 MG PO (13:08)
[2020-12-03 13:12] VITALS: BP 110/64
--- NOTE | 2020-12-03 14:59 | NUR ---
Pt scheduled to dc today, ex ox completed, Pt now requiring 6L with activity, baseline was o2 at night only, dc delayed. CM updated Pt's . O2 referral sent to erik Tejeda to be delievered at id.
--- NOTE | 2020-12-03 16:12 | NUR ---
PT REMAINED ALERT AND ORIENTED. PT RESTING IN BED. PATIENT NEEDS O2 6 LITERS, DISCHARGE HELD OFF AT THIS TIME. FALL RISK PRECAUTIONS IN PLACE. HOURLY ROUNDING COMPLETED. CALL LIGHT WITHIN REACH.
[2020-12-04 05:26] LABS: ALBUMIN 2.7 g/dL (3.4-5.0); ALKALINE PHOSPHATASE 54 U/L (46-116); ANION GAP < 0 mmol/L (7-16); BUN 10 mg/dL (7-18); CALCIUM 8.2 mg/dL (8.5-10.1); CHLORIDE 100 mmol/L (98-107); CO2 42 mmol/L (21-32); CREATININE 0.6 mg/dL (0.6-1.3); GLUCOSE 144 mg/dL (70-99); MAGNESIUM 1.9 mg/dL (1.8-2.4); POTASSIUM 4.6 mmol/L (3.5-5.1); SGOT 11 U/L (15-37); SGPT 18 U/L (30-65); SODIUM 137 mmol/L (136-145); TOTAL BILIRUBIN 0.4 mg/dL (<0.1-1.0); TOTAL PROTEIN 5.3 g/dL (6.4-8.2)
--- NOTE | 2020-12-04 05:36 | NUR ---
PATIENT SLEPT WELL DURING THIS SHIFT. PT A/O X4, FORGETFUL AT TIMES. PT ON O2 @ 4 LITERS PER NASAL CANNULA. O2 INCREASED TO 6L WITH EXERTION. PT IS SALINE LOCKED IN RT FOREARM. PT IS M/S STATUS. PT WITH HIDALGO TO DEPENDENT DRAIN WITH DARK YELLOW URINE. PT DENIES NEEDS AT THIS TIME. FREQUENTLY USED ITEMS AND CALL LIGHT WITHIN REACH. SIDERAILS UPX3 AND BED ALARM ON. WILL CONTINUE TO MONITOR.
[2020-12-04 08:31] VITALS: BP 99/51
[2020-12-04 12:11] VITALS: BP 110/64
--- NOTE | 2020-12-04 12:16 | NUR ---
Pt discharging to home today. CM left o2 tank in room, updated Pt and granddtr to contact [employer] once Pt arrives at home to have more o2 tanks delivered and have his concentrator checked, granddtr states that it is not working properly. Pt does not qualify for an [employer]ogen at this time per [employer], Pt's o2 needs are too high. Pt states that he bought one over the internet in July, but stated that it no longer works properly, CM encouraged Pt to contact the company that he bought it from. HH arranged through [facility], referral and orders faxed. Granddtr will transport home.
[2020-12-04 14:00] VITALS: BP 110/64
[2020-12-04 14:50] VITALS: BP 110/64
[2020-12-04 16:21] VITALS: BP 110/64
--- NOTE | 2020-12-04 16:21 | NUR ---
PATIENT/GRAND DAUGHTER GIVEN DISCHARGE INSTRUCTIONS AND MEDICATIONS REVIEWED. GAVE AMPICILLIN PRESCRIPTION AND INFORMATION SHEETS ON ALL NEW MEDICATIONS. IV REMOVED. PATIENT DENIED ANY PAIN/QUESTIONS/CONCERNS PRIOR TO DISCHARGE. PATIENT LEFT UNIT VIA W/C WITH PERSONAL BELONGINGS WELL NEW OXYGEN TANK ACCOMPANIED BY NURSING STAFF AT APPROX. 1615 TO MEET GRAND DAUGHTER AT MAIN ENTRANCE.
== END 2020-12-04 16:15 | disposition home health service (06) | DRG 689 ==
LOC: M.ERS 10:46 → M.2W 13:32 → M.TBA-ER 13:32 → M.2W 12-01 21:41
PROVIDERS: Nurse Practitioner Family; ADMIT Internal Medicine; ATTEND Internal Medicine
PROC: 0T9B70Z Drainage of Bladder with Drainage Device, Via Natural or Artificial Opening (ICD-10-PCS; principal; 2020-12-01)
DX: N30.01 Acute cystitis with hematuria (principal); E43 Unspecified severe protein-calorie malnutrition; E87.1 Hypo-osmolality and hyponatremia; J96.11 Chronic respiratory failure with hypoxia; Z68.1 Body mass index [BMI] 19.9 or less, adult; N35.919 Unspecified urethral stricture, male, unspecified site; R33.9 Retention of urine, unspecified; J44.9 Chronic obstructive pulmonary disease, unspecified; N40.0 Benign prostatic hyperplasia without lower urinary tract symptoms; F41.9 Anxiety disorder, unspecified; F17.210 Nicotine dependence, cigarettes, uncomplicated; Z20.822 Contact with and (suspected) exposure to COVID-19; Z79.899 Other long term (current) drug therapy; B96.89 Other specified bacterial agents as the cause of diseases classified elsewhere

== ENCOUNTER 2021-01-31 13:43 | Inpatient (IN) | payer MEDICARE ==
[~2021-01-31] VITALS: Ht 162.6 cm; Wt 49.0 kg
[~2021-01-31 13:43] MED LIST changes: +AMPICILLIN TRI250 MG PO; +PROAIR HFA8.5 GM INH
[2021-01-31 14:13] VITALS: BP 128/61
[2021-01-31 14:27] LABS: BE 1.4 mmol/L (-2 to +3); PO2 67.8 mmHg (75.0-100.0); pH 7.338 (7.340-7.450)
[2021-01-31 14:31] LABS: PCO2 53.2 mmHg (35.0-45.0)
[2021-01-31 14:44] LABS: MCHC 33.3 g/dL (28.0-37.0); MCV 84.1 fL (80.0-100.0); MPV 7.1 fl. (7.2-11.1); NUCLEATED RBCS 0 /100WBC; PLATELET COUNT* 188 thou/uL (150-400); RBC 3.57 mil/uL (4.50-6.00); RDW-CV 12.8 % (10.5-14.5); WBC 5.2 thou/uL (4.0-11.0)
[2021-01-31 15:08] LABS: CALCIUM 8.5 mg/dL (8.5-10.1); CREATININE 0.9 mg/dL (0.6-1.3); POTASSIUM 4.7 mmol/L (3.5-5.1)
[2021-01-31 15:20] LABS: ALBUMIN 3.5 g/dL (3.4-5.0); TOTAL BILIRUBIN 0.5 mg/dL (<0.1-1.0); TOTAL PROTEIN 6.6 g/dL (6.4-8.2)
[2021-01-31 15:23] LABS: ABSOLUTE LYMPHOCYTES 0.3 thou/uL (0.8-5.3); ABSOLUTE NEUTROPHILS 4.9 thou/uL (1.6-8.1); PLATELET ESTIMATE ADEQUATE
[2021-01-31] MEDS ORDERED: NORCO5 PO (16:10)
[2021-01-31 20:09] VITALS: BP 110/70
[2021-02-01 00:19] VITALS: BP 128/59
[2021-02-01 04:26] VITALS: BP 110/56
[2021-02-01 04:36] LABS: CALCIUM 8.2 mg/dL (8.5-10.1); CREATININE 0.8 mg/dL (0.6-1.3); POTASSIUM 5.1 mmol/L (3.5-5.1)
[2021-02-01 05:09] LABS: ABSOLUTE LYMPHOCYTES 0.1 thou/uL (0.8-5.3); ABSOLUTE NEUTROPHILS 1.5 thou/uL (1.6-8.1); BASOPHILS 0.3 %; HEMATOCRIT 29.8 % (42.0-52.0); HEMOGLOBIN 9.8 gm/dL (14.0-18.0); LYMPHOCYTES 4.4 %; MCH 27.7 pg (26.0-34.0); MCHC 32.8 g/dL (28.0-37.0); MCV 84.4 fL (80.0-100.0); MPV 7.5 fl. (7.2-11.1); NUCLEATED RBCS 0 /100WBC; PLATELET COUNT* 179 thou/uL (150-400); POLYS 93.3 %; RBC 3.53 mil/uL (4.50-6.00); RDW-CV 12.9 % (10.5-14.5)
[2021-02-01 05:32] LABS: WBC 1.6 thou/uL (4.0-11.0)
[2021-02-01 08:31] VITALS: BP 113/54
--- NOTE | 2021-02-01 11:49 | EKG ---
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: JAYRO : 1940 Requested By: Davonte Turpin Order Number: [id number] MD: Miguel Carvalho Measurements Intervals [place] Rate: 100 P: 66 TX: 151 QRS: -87 QRSD: 81 T: 52 QT: 317 QTc: 409 Interpretive Statements Sinus tachycardia Atrial premature complex Probable left atrial enlargement Left anterior fascicular block Borderline low voltage, extremity leads Compared to ECG 11/30/2020 10:54:28 Sinus rhythm no longer present Electronically Signed On 02-01-2021 11:49:09 CDT by Miguel Carvalho [email or web address] <ELECTRONICALLY SIGNED> By: Meghann Carvalho MD, [facility] 02/01/21 1149 141 141 Meghann Carvalho MD, [facility] /EPI
[2021-02-01 12:15] VITALS: BP 108/55; BP 124/75
[2021-02-01 17:34] VITALS: BP 101/50
[2021-02-01 20:00] VITALS: BP 103/54
[2021-02-02] VITALS: BP 94/46
[2021-02-02 01:53] LABS: URINE BILIRUBIN NEGATIVE (Negative); URINE BLOOD 3+ (Negative); URINE CLARITY SL CLOUDY; URINE COLOR STRAW; URINE GLUCOSE-RANDOM NEGATIVE (Negative); URINE KETONES NEGATIVE (Negative); URINE LEUKOCYTES-REFLEX 3+ (Negative); URINE NITRITE-REFLEX NEGATIVE (Negative); URINE PROTEIN NEGATIVE (Negative); URINE SPECIFIC GRAVITY <= 1.005 (1.005-1.030); URINE UROBILINOGEN 0.2 E.U./dl (0.2-1.0)
[2021-02-02 02:28] LABS: CASTS None Seen /LPF (None Seen); SQUAMOUS 4-10 Moderate /LPF (0-3)
[2021-02-02 02:37] LABS: URINE RBC >20 Many /HPF (0-2)
[2021-02-02 02:38] LABS: URIC ACID CRYSTALS 0-3 Few /LPF (None Seen)
[2021-02-02 04:00] VITALS: BP 98/48
[2021-02-02 08:00] VITALS: BP 122/55
[2021-02-02 11:16] LABS: POTASSIUM 5.2 mmol/L (3.5-5.1)
[2021-02-02 11:19] LABS: CALCIUM 8.2 mg/dL (8.5-10.1); CREATININE 0.7 mg/dL (0.6-1.3)
[2021-02-02 12:14] VITALS: BP 91/50
[2021-02-02 17:06] VITALS: BP 107/75
[2021-02-02 20:00] VITALS: BP 125/64
[2021-02-03] VITALS (7 sets, daily range): BP systolic 98–127; BP diastolic 49–71
[2021-02-04 04:33] VITALS: BP 117/66
[2021-02-04 09:00] VITALS: BP 111/68
[2021-02-04] MEDS ORDERED: CEFDINIR300 MG PO (10:06)
[2021-02-04] MEDS ORDERED: PREDNISONE 10 M10 MG PO (10:06)
[2021-02-04] MEDS ORDERED: FLOMAX0.4 MG PO (10:06)
[2021-02-04 10:28] VITALS: BP 117/66
[2021-02-04 11:06] VITALS: BP 117/66
[2021-02-04 12:24] VITALS: BP 129/70
[2021-02-04 18:30] VITALS: BP 117/66
== END 2021-02-04 13:45 | disposition home health service (06) | DRG 189 ==
LOC: M.ERS 13:43 → M.TBA-ER 16:34 → M.2W 16:34
PROVIDERS: Internal Medicine; Physician Assistant; ADMIT Internal Medicine; ATTEND Internal Medicine
DX: J96.21 Acute and chronic respiratory failure with hypoxia (principal); R65.11 Systemic inflammatory response syndrome (SIRS) of non-infectious origin with acute organ dysfunction; J44.1 Chronic obstructive pulmonary disease with (acute) exacerbation; N39.0 Urinary tract infection, site not specified; E87.1 Hypo-osmolality and hyponatremia; J96.22 Acute and chronic respiratory failure with hypercapnia; F41.9 Anxiety disorder, unspecified; F17.210 Nicotine dependence, cigarettes, uncomplicated; K59.00 Constipation, unspecified; Z20.822 Contact with and (suspected) exposure to COVID-19; Z79.899 Other long term (current) drug therapy; Z87.01 Personal history of pneumonia (recurrent)

== ENCOUNTER 2021-02-25 11:08 | Inpatient (IN) | payer MEDICARE ==
[2021-02-25] VITALS (19 sets, daily range): BP systolic 60–120; BP diastolic 39–73
[~2021-02-25] VITALS: Ht 170.2 cm; Wt 77.2 kg
--- NOTE | ~2021-02-25 | EEG ---
[address] [address] EEG STUDY REPORT Name: LUISA BRODY Room: [address] IN M.R.#: [id number] Admission: 02/25/21 Attend Phys: David Lloyd Discharge: Date of : 42 Report #: [id number] THIS REPORT FOR: cc: Henrietta James Catherine FNP Khosla,New Reyes MD ~ DATE OF SERVICE: 02/27/2021 This patient is being evaluated for altered mental status. EEG was done by placing the electrode by standard 10-20 system of electrode placement. Both referential and sequential montages were used for recording. Background activity in this patient's EEG is about 4-5 Hz and 15 microvolt. Photic stimulation is unremarkable. No active epileptiform activity was noticed. IMPRESSION: This is an abnormal EEG because it is pretty slow and poorly formed. This is a nonspecific finding which can be consistent with encephalopathy. This patient still has brain activity present, although that is severely abnormal. Thank you very much for this referral. By: 0941 [id number] Buchanan MD /nt
--- NOTE | ~2021-02-25 | CON ---
[facility] [address] [place] [address] CONSULTATION Name: LUISA BRODY Room: [address] IN M.R.#: [id number] Admission: 02/25/21 Attend Phys: David Lloyd Discharge: Date of : 42 Report #: [id number] THIS REPORT FOR: cc: Henrietta James Catherine FNP Namin, Farid M. MD ~ DATE OF CONSULTATION: 02/28/2021 REFERRING PHYSICIAN: Dr. Vignesh Keller. HISTORY OF PRESENT ILLNESS: This is a 80-year-old male who was brought to [facility] ([place] after his had found him down at home. The patient apparently has had cardiac arrest and was coded when he presented to ICU here. Currently, his pupils are fixed and mildly dilated. He is anuric and he has had respiratory failure and he is on vent. Initially, there was a concern that he had GI bleed and he was started on Protonix drip. His hemoglobin has been stable around 7.5. There is no evidence of any blood either per rectum or an NG tube. PAST MEDICAL HISTORY: Significant for history of pneumonia, COPD, benign prostatic hypertrophy, coronary artery disease, cardiac arrest, history of tonsillectomy, anxiety. ALLERGIES: No known drug allergies. MEDICATIONS: Please refer to MAR. SOCIAL HISTORY: The patient lives at home. He was found down by his who called the EMS. The patient has been coded since hospitalization. The patient has long history of tobaccoism and smokes one to two cigarettes per day. There is no history of alcohol. FAMILY HISTORY: Noncontributory. PHYSICAL EXAMINATION: GENERAL: Stated as age male who is lying in bed and intubated. HEENT: His pupils are equal, but fixed. ABDOMEN: Soft. LUNGS: Bilateral air movement notable. CARDIOVASCULAR: Regular rate. LABORATORY DATA: Reveal sodium of 137, potassium 4.7, BUN is 64, creatinine 2.8, glucose is 157, AST 429, alkaline phosphatase is 41, ALT is 1155. CK-MB is 21. Lactate is 2.4. Lipase is 172. WBC is 8.6 with hemoglobin of 7.4 and [place] 35[place] [address] CONSULTATION Name: LUISA BRODY Room: [address] IN [facility]#: [id number] Admission: 02/25/21 Attend Phys: David Lloyd Discharge: Date of : 42 Report #: [id number] of abdomen and pelvis was obtained on admission. There was interval development of small right effusion with associated right basilar infiltrate. There is a tiny fat containing nonobstructive umbilical hernia. There is evidence of diverticulosis without evidence of diverticulitis. There is proximal to mid jejunal wall thickening noted in this study. ASSESSMENT AND PLAN: 1. The patient with history of recent cardiac arrest, who has been coded. Initially, he was started on Protonix drip for suspected gastrointestinal bleed. His hemoglobin has been stable for the past couple of days. He is on Protonix drip currently. I would discontinue Protonix drip and put him on Protonix 40 b.i.d. IV. We will continue monitoring his hemoglobin and hematocrit. The patient also has thrombocytopenia. 2. Elevated liver function tests. This is most probably secondary to shock liver as the patient has been hypotensive. 3. Anuria as the patient cannot produce any urine. 4. Pneumonia. The patient is on antibiotics. 5. Sepsis. The patient is ____. 6. Thickening of the small bowel, per CT. This may be due to hypoxic injury to the small bowel as the patient initially was found down. We will not recommend any endoscopic evaluation at this time. We will continue monitoring hemoglobin and hematocrit, and liver function tests. Note that this 38 minutes was spent to obtain records, review records and evaluate the patient. By: 1521 1830Quentin Heredia MD /mary
--- NOTE | ~2021-02-25 | CON ---
[facility] [address] [place] [address] CONSULTATION Name: LUISA BRODY Room: [address] IN M.R.#: [id number] Admission: 02/25/21 Attend Phys: David Lloyd Discharge: Date of : 42 Report #: [id number] THIS REPORT FOR: cc: Henrietta James Catherine FNP Khosla, Parveen K. MD ~ DATE OF CONSULTATION: 02/26/2021 HISTORY OF PRESENT ILLNESS: This is a 80-year-old male patient who was evaluated by me to prognosticate the patient from hypoxic encephalopathy. The patient is unable to provide any history. I talked to the patient's son and talked to the nurse looking after this patient and reviewed the record. This patient has numerous medical problems. Those include chronic obstructive pulmonary disease with home oxygen, enlarged prostate, respiratory distress, anxiety, hip fracture, bronchitis, pneumonia, anemia, hypercarbic respiratory failure, sepsis. He was admitted with cardiac arrest. The notes were reviewed and it looks like resuscitation was provided immediately, but EMS still has to give him epinephrine and revive him. He has been admitted since then. This was his relevant 14-point review of systems. PAST MEDICAL HISTORY: Positive for numerous problems including chronic obstructive pulmonary disease. FAMILY HISTORY: Unremarkable. SOCIAL HISTORY: His son was present, but he lives with his and she is the one who witnessed this episode. PHYSICAL EXAMINATION: Indicates that he is unresponsive. I talked to the nurses and they tell me that the patient is not on any sedation. His pupils were midpoint, but they were not reactive. The patient has no response. He did get some sedation yesterday as per record, which I reviewed. It looks like he may have gotten some sedation even starting this morning. I will discuss that with the nurses. Otherwise, he has no response of any kind. He is on vent. He is a reasonably well-built individual. His blood pressure is running about 84/47, pulse is 92, temperature is 91 because he is on cooling protocol. LABORATORY DATA: His white count is only 2.7, his platelet count is only 43, and he is anemic with a hemoglobin of 6.5. He did have a CT scan of the head on admission, which does not show any acute problem. IMPRESSION: Cardiac arrest, causing hypoxic encephalopathy. DISCUSSION AND PLAN: I discussed with the family that we will evaluate further. We will do an EEG tomorrow after he is warmed up. [place] [address] CONSULTATION Name: LUISA BRODY Room: [address] IN [facility].#: [id number] Admission: 02/25/21 Attend Phys: David Lloyd Discharge: Date of : 42 Report #: [id number] or MRI depending upon the patient's condition and results of EEG. All of it was discussed with the family in detail and they understand that and they are agreeable with this plan. Thank you very much for this referral. By: 1523 1955New Buchanan MD /nt
--- NOTE | ~2021-02-25 | EEG ---
[address] [address] EEG STUDY REPORT Name: LUISA BRODY Room: [address] IN M.R.#: [id number] Admission: 02/25/21 Attend Phys: David Lloyd Discharge: Date of : 42 Report #: [id number] THIS REPORT FOR: cc: Henrietta James Catherine FNP Khosla,New Reyes MD ~ DATE OF SERVICE: 02/28/2021 This patient is being evaluated for hepatic encephalopathy. EEG was done by placing the electrode by standard 10-20 system of electrode placement. Both referential and sequential montages were used for recording. Background activity in this patient's EEG is about 4-5 Hz and 15 microvolt. The patient's photic stimulation was done and prior EEG and this EEG. No active epileptiform activity was noticed. IMPRESSION: Low voltage slow activity is present. This patient does not meet the criteria for brain , but EEG is severely abnormal, which can be consistent with encephalopathy, but the finding is nonspecific. Thank you very much for this referral. By: 1219 1241Pjosefina Buchanan MD /nt
--- NOTE | ~2021-02-25 | CON ---
[address] [address] CONSULTATION Name: LUISA BRODY Room: [address] IN M.R.#: [id number] Admission: 02/25/21 Attend Phys: David Lloyd Discharge: Date of : 42 Report #: [id number] THIS REPORT FOR: cc: Henrietta James Catherine FNP Vasudeva, Amita MD ~ DATE OF CONSULTATION: 03/01/2021 NEPHROLOGY CONSULTATION CONSULTING PHYSICIAN: Dr. Rivers. REASON FOR NEPHROLOGY CONSULTATION: Acute kidney injury. REASON FOR ADMISSION: Cardiac arrest. HISTORY OF PRESENT ILLNESS: This is a 80-year-old male who lives in an independent living facility with his , he has past medical history of pneumonia, bronchitis, right hip fracture, status post repair, COPD, BPH, anxiety, was brought in to the ED after he was found down by his in cardiac arrest. His activated EMS and started compressions and that EMS administered 3 rounds of epinephrine. CPR was continued until [TIME: 01:06] was achieved and he was placed on code ice protocol and then finally rewarmed on 02/27 development officer. The patient is currently on no sedation, has gag reflex, has some cortical activity on his EKG, pupils are reactive, but no voluntary movements. His family has made him DNR. He is currently not on any vasopressors, but he was on vasopressors till 02/27. He also had a CT scan with IV contrast on the when he came in. His creatinine when he came in was 1.3, but has slowly gone up to 3.4 and he is oligoanuric. Urine output is slightly better this morning, but not significantly. He did not respond to me. He is intubated. His ejection fraction was noted to be 55-60%. Apparently, there is supposed to be a family meeting tomorrow. ALLERGIES: No known allergies. REVIEW OF SYSTEMS: As mentioned in history of present illness: The patient was not able to provide good history. PAST MEDICAL HISTORY: Includes pneumonia, bronchitis, right hip fracture, tonsillectomy, COPD, BPH, anxiety, tobacco abuse, respiratory distress. PAST SURGICAL HISTORY: As mentioned above. HOME MEDICATIONS: Include albuterol, Symbicort, [place]ylenol [place] [address] CONSULTATION Name: LUISA BRODY Janet Room: [address]#: [id number] Admission: 02/25/21 Attend Phys: David Lloyd Discharge: Date of : 42 Report #: [id number] FAMILY HISTORY: Noncontributory in this 80-year-old male. SOCIAL HISTORY: Lives at independent living facility with his . Smokes every day. No alcohol use or recreational drug use. PHYSICAL EXAMINATION: VITAL SIGNS: His blood pressure is 128/60, temperature 37.1, pulse rate 71, respiratory rate is 22, and pulse ox 99% and this was on ventilator. GENERAL: He is intubated and sedated, has been having some upper body jerky movements. EARS, NOSE AND THROAT: Normal ears, nose [TIME: 03:10]. NECK: No JVD. CHEST: Bilaterally decreased breath sounds. No crackles. CARDIOVASCULAR: S1, S2 normal. No murmurs. ABDOMEN: Soft, nondistended. LOWER EXTREMITIES: There is about 2+ lower extremity edema. Anasarca. NEUROLOGICAL FUNCTION: Cannot assess. He is not responsive. PSYCHIATRIC: Not able to assess. LABORATORY DATA: Hemoglobin is 7.5, white count is 11.7, platelet count is 44. Sodium is 138, potassium is 5.0, BUN is 78, creatinine is 3.4 and other labs were reviewed. IMAGING: Chest x-ray, renal ultrasound, venous Doppler study and other imaging studies were reviewed. ASSESSMENT: 1. Acute kidney injury, oligoanuric in the setting of cardiac arrest, ischemic acute tubular necrosis. UA was reviewed, showed trace protein, 3-10 rbc's per high power field with 1+ ketones with wbc's. Renal ultrasound did not show any hydronephrosis. He did receive intravenous contrast also on 02/25, which could have contributed to acute kidney injury as well. 2. Status post cardiac arrest, status post code ice, rewarmed early a.m. on 02/27, not responsive, anoxic brain injury. 3. Chronic obstructive pulmonary disease with acute exacerbation. Internal Medicine is treating. 4. Shock liver, but liver enzymes are better. 5. Gastrointestinal bleed during hospital admission, status post 1 unit of PRBC. 6. [TIME: 04:44] pneumonia. 7. Thrombocytopenia. Primary team is following him. 8. Right-sided pleural effusion. 9. Ejection fraction 55-60%. [address] [address] CONSULTATION Name: LUISA BRODY Room: [address] IN M.R.#: [id number] Admission: 02/25/21 Attend Phys: David Lloyd Discharge: Date of : 42 Report #: [id number] PLAN: The patient is currently not responsive, status post cardiac arrest. He is not making much urine and his renal function is worsening. His prognosis seems to be poor, although Neurology has not declared him brain yet. I spoke with the patient's son who lives locally in detail and he indicated to me that they have decided for the patient to be DNR and they also did not want any dialysis on him. I also explained to the patient's son that even if a need for dialysis arises, he is a very poor candidate for dialysis. The patient's son is intending to have a family meeting with attending tomorrow with rest of his family members and they are looking at withdrawal of care. Discussed with the patient's nurse in detail too. There is actually nothing else to add from Nephrology standpoint. Please call us if you have any questions. His prognosis remains poor. Thank you for this consultation. By: 0737 Bharath31Aurora Fuentes MD /mary
[~2021-02-25 11:08] MED LIST changes: +CEFDINIR300 MG PO; +NORCO5 PO
[2021-02-25 11:26] LABS: HEMATOCRIT 30.3 % (42.0-52.0); HEMOGLOBIN 9.4 gm/dL (14.0-18.0); MCH 28.3 pg (26.0-34.0); MCV 91.2 fL (80.0-100.0); NUCLEATED RBCS 1 /100WBC; PLATELET COUNT* 73 thou/uL (150-400); RBC 3.32 mil/uL (4.50-6.00); RDW-CV 13.2 % (10.5-14.5); WBC 4.8 thou/uL (4.0-11.0)
[2021-02-25 11:49] LABS: CALCIUM 7.8 mg/dL (8.5-10.1); CREATININE 1.3 mg/dL (0.6-1.3); POTASSIUM 5.9 mmol/L (3.5-5.1)
[2021-02-25 12:00] LABS: TOTAL BILIRUBIN 0.6 mg/dL (<0.1-1.0); TOTAL PROTEIN 4.8 g/dL (6.4-8.2)
[2021-02-25 12:03] LABS: URINE BILIRUBIN NEGATIVE (Negative); URINE BLOOD 2+ (Negative); URINE CLARITY CLOUDY; URINE COLOR YELLOW; URINE GLUCOSE-RANDOM NEGATIVE (Negative); URINE KETONES 1+ (Negative); URINE NITRITE-REFLEX NEGATIVE (Negative); URINE PROTEIN TRACE (Negative); URINE SPECIFIC GRAVITY >= 1.030 (1.005-1.030); URINE UROBILINOGEN 0.2 E.U./dl (0.2-1.0)
[2021-02-25 12:04] LABS: URINE LEUKOCYTES-REFLEX 2+ (Negative)
[2021-02-25 12:17] LABS: CASTS None Seen /LPF (None Seen); CRYSTALS None Seen /LPF (None Seen); SQUAMOUS NONE SEEN /LPF (0-3); YEAST-REFLEX Present (None Seen)
[2021-02-25 12:18] LABS: URINE RBC 3-10 Few /HPF (0-2); URINE WBC-REFLEX >25 Many /HPF (0-5)
[2021-02-25 12:19] LABS: BE -1.9 mmol/L (-2 to +3)
[2021-02-25 12:22] LABS: pH 7.244 (7.340-7.450)
[2021-02-25 12:23] LABS: PCO2 60.5 mmHg (35.0-45.0)
[2021-02-25 13:00] LABS: ABSOLUTE LYMPHOCYTES 0.2 thou/uL (0.8-5.3); ABSOLUTE NEUTROPHILS 4.6 thou/uL (1.6-8.1); PLATELET ESTIMATE ADEQUATE
--- NOTE | 2021-02-25 13:37 | NUR ---
PT INTUBATED WITH 7.5 ETT. 22 AT LIP. OG INSERTED TO 57CM. RETURN OF DARK RED BLOOD NOTED AND DR. AUSTIN NOTIFIED. TEMP SENSING HIDALGO CATH INSERTED WITHOUT DIFFICULTY WITH RETURN OF VERY CLOUDY URINE. SAMPLE OBTAINED AND SENT TO LAB. NS SWAB DONE FOR COVID AND SENT TO LAB. PT TAKEN TO CT SCAN THEN TO ROOM 4 IN ICU. AND SON TAKEN TO ICU WAITING ROOM.
[2021-02-25 16:11] LABS: CALCIUM 7.2 mg/dL (8.5-10.1); CREATININE 1.1 mg/dL (0.6-1.3); MAGNESIUM 1.8 mg/dL (1.8-2.4); PHOSPHORUS* 4.8 mg/dL (2.5-4.9); POTASSIUM 5.4 mmol/L (3.5-5.1)
[2021-02-25 17:06] LABS: APTT 31.4 Seconds (25.0-31.3); FIBRINOGEN 230 mg/dL (200-340); INR 1.6; PROTIME 16.8 Seconds (9.20-11.50)
[2021-02-25 20:15] LABS: ABSOLUTE LYMPHOCYTES 0.1 thou/uL (0.8-5.3); ABSOLUTE MONOCYTES 0.3 thou/uL (0.0-1.2); ABSOLUTE NEUTROPHILS 5.2 thou/uL (1.6-8.1); BASOPHILS 0.2 %; EOSINOPHILS 0.1 %; HEMOGLOBIN 8.4 gm/dL (14.0-18.0); LYMPHOCYTES 1.6 %; MCH 28.4 pg (26.0-34.0); MCHC 32.1 g/dL (28.0-37.0); MCV 88.3 fL (80.0-100.0); MONOCYTES 5.5 %; MPV 7.4 fl. (7.2-11.1); NUCLEATED RBCS 0 /100WBC; PLATELET COUNT* 86 thou/uL (150-400); POLYS 92.6 %; RBC 2.95 mil/uL (4.50-6.00); RDW-CV 13.3 % (10.5-14.5); WBC 5.6 thou/uL (4.0-11.0)
[2021-02-25 20:29] LABS: APTT 29.4 Seconds (25.0-31.3); FIBRINOGEN 215 mg/dL (200-340); INR 1.6; PROTIME 16.6 Seconds (9.20-11.50)
[2021-02-25 20:49] LABS: CK-MB MASS 18.8 ng/mL (<0.5-3.6); CREATININE 1.3 mg/dL (0.6-1.3); MAGNESIUM 1.8 mg/dL (1.8-2.4); PHOSPHORUS* 3.4 mg/dL (2.5-4.9); POTASSIUM 4.6 mmol/L (3.5-5.1)
[2021-02-25 23:39] LABS: PO2 109.7 mmHg (75.0-100.0)
[2021-02-25 23:44] LABS: PCO2 56.6 mmHg (35.0-45.0); pH 7.254 (7.340-7.450)
[2021-02-26] VITALS (77 sets, daily range): BP systolic 66–154; BP diastolic 41–97
[2021-02-26 01:12] LABS: CALCIUM 6.9 mg/dL (8.5-10.1); CREATININE 1.4 mg/dL (0.6-1.3); POTASSIUM 4.1 mmol/L (3.5-5.1)
--- NOTE | 2021-02-26 04:19 | NUR ---
ASSUMED CARE AT 1730H, ON VENT AT 40% AND TOLERATED. ON CODE ICE STARTED AT 1400H. SEDATED WITH VERSED WITH PRESSOR OF NINO AND LEVO. CARDIO CALLED WITH NO FURTHER ORDER. PT LOCALIZED TO PAIN AND TAKING SWALLOW BREATH, PULMO AWARE WITH ORDERS MADE AND CARRIED OUT. VENT SETTING CHANGE FROM AC TO PC MODE. NINO OFF AT 0200H. CONTINUE MONITORING AND TOWARDS GOALS. VERSED DRIP AT 8MG/HR, FENTANYL AT 80MICS/HR AND LEVO AT 8MIS.
[2021-02-26 05:29] LABS: POTASSIUM 3.9 mmol/L (3.5-5.1)
[2021-02-26 05:36] LABS: ALBUMIN 2.4 g/dL (3.4-5.0); CALCIUM 6.8 mg/dL (8.5-10.1); CREATININE 1.5 mg/dL (0.6-1.3); MAGNESIUM 1.6 mg/dL (1.8-2.4)
[2021-02-26 05:40] LABS: APTT 36.5 Seconds (25.0-31.3); INR 1.6; PROTIME 16.1 Seconds (9.20-11.50)
[2021-02-26 05:53] LABS: ABSOLUTE MONOCYTES 0.2 thou/uL (0.0-1.2); ABSOLUTE NEUTROPHILS 3.4 thou/uL (1.6-8.1); BASOPHILS 0.1 %; EOSINOPHILS 0.5 %; HEMATOCRIT 20.2 % (42.0-52.0); LYMPHOCYTES 1.3 %; MCH 28.1 pg (26.0-34.0); MCHC 32.1 g/dL (28.0-37.0); MCV 87.6 fL (80.0-100.0); MPV 7.7 fl. (7.2-11.1); NUCLEATED RBCS 0 /100WBC; PLATELET COUNT* 54 thou/uL (150-400); POLYS 93.1 %; RBC 2.31 mil/uL (4.50-6.00); RDW-CV 13.5 % (10.5-14.5); WBC 3.6 thou/uL (4.0-11.0)
[2021-02-26 05:57] LABS: HEMOGLOBIN 6.5 gm/dL (14.0-18.0)
[2021-02-26 06:02] LABS: TOTAL BILIRUBIN 1.2 mg/dL (<0.1-1.0); TOTAL PROTEIN 4.3 g/dL (6.4-8.2)
[2021-02-26 06:32] LABS: CK-MB MASS 21.7 ng/mL (<0.5-3.6)
--- NOTE | 2021-02-26 06:45 | NUR ---
PT'S (TIFFANY) REQUESTING UPDATE FROM [employer]CT[employer]. SHE CANNOT DRIVE TODAY TO VISIT HER BECAUSE OF HER NEW MED.
[2021-02-26 07:49] LABS: BE 0.8 mmol/L (-2 to +3); PCO2 47.2 mmHg (35.0-45.0); pH 7.364 (7.340-7.450)
[2021-02-26 07:52] LABS: PO2 127.5 mmHg (75.0-100.0)
[2021-02-26 12:31] LABS: ABSOLUTE MONOCYTES 0.2 thou/uL (0.0-1.2); ABSOLUTE NEUTROPHILS 3.1 thou/uL (1.6-8.1); BASOPHILS 0.4 %; EOSINOPHILS 0.4 %; HEMATOCRIT 20.6 % (42.0-52.0); LYMPHOCYTES 1.2 %; MCH 27.8 pg (26.0-34.0); MCHC 33.1 g/dL (28.0-37.0); MCV 83.9 fL (80.0-100.0); MONOCYTES 4.6 %; MPV 7.5 fl. (7.2-11.1); NUCLEATED RBCS 0 /100WBC; POLYS 93.4 %; RBC 2.45 mil/uL (4.50-6.00); RDW-CV 14.8 % (10.5-14.5); WBC 3.3 thou/uL (4.0-11.0)
--- NOTE | 2021-02-26 12:33 | NUR ---
NEURO EXAM COMPLETE, NO GAG, NO COUGH. PUPILS ARE UNEQUAL AND FIXED. NO WITHDRAWL TO PAIN IN UPPER EXTRIMITIES, THERE IS LITTLE MOVEMENT TO LOWER EXTRIMITIES WHEN PAIN IS INFLICTED HOWEVER I STILL CANNOT TELL IF IT IS A PAIN REFLEX OR TWITCHING. PATIENT ABLE TO BE WEANED OFF LEVO AT THIS TIME. BP MAINTAINING WITH MAP GREATER THAN 65. DECREASED URINE OUTPUT WITH ONLY 7ML THIS SHIFT SO FAR, BLADDER SCAN COMPLETE AND ONLY SHOWING 26ML IN BLADDER. PROVIDER IS AWARE. NO OTHER CONCERNS AT THIS TIME. WILL CONTINUE TO MONITOR AND CARE PER PLAN OF CARE.
[2021-02-26 12:37] LABS: HEMOGLOBIN 6.8 gm/dL (14.0-18.0); PLATELET COUNT* 46 thou/uL (150-400)
[2021-02-26 12:48] LABS: APTT 41.9 Seconds (25.0-31.3); INR 1.6; PROTIME 16.7 Seconds (9.20-11.50)
[2021-02-26 12:54] LABS: ALBUMIN 3.1 g/dL (3.4-5.0); CALCIUM 6.9 mg/dL (8.5-10.1); CREATININE 1.7 mg/dL (0.6-1.3); TOTAL BILIRUBIN 1.5 mg/dL (<0.1-1.0); TOTAL PROTEIN 4.8 g/dL (6.4-8.2)
--- NOTE | 2021-02-26 13:17 | NUR ---
Spoke to Sunshine over the phone due to patient being unable to speak for himself at this time. Introduced role of CM. Per Sunshine, patient currently lives in a house with her and their dogs. No stairs in the home. Patient uses O2 at home but unaware of liter flow. stated that she thinks the patient uses a bipap/cpap at HS but she is unsure what he uses is a bipap/cpap or if it is just his O2. unsure the name of the O2 company. No hx of DME, BHS, dialysis or infusion therapy. Patient was independent with ADLS prior to admission. Patient was not driving. PCP is Henrietta James. stated that she is waiting for a ride to come up to see patient. Reviewed previous CM documentation for more detail due to 's limited memory. Per previous documentation patient has a Hx of HH through [facility]. O2 @ 4L continously from [employer]. Hx of SNF (located in [place]). 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 Plan of Care: Patient currently on a vent (FiO2 30% and Peep 5). Sedation and abx. Patient to start warming procedures at 2pm per nursing. CM to continue to follow
[2021-02-26 14:29] LABS: ABSOLUTE MONOCYTES 0.1 thou/uL (0.0-1.2); ABSOLUTE NEUTROPHILS 2.6 thou/uL (1.6-8.1); BASOPHILS 0.2 %; EOSINOPHILS 0.4 %; LYMPHOCYTES 1.2 %; MCH 27.8 pg (26.0-34.0); MCHC 33.1 g/dL (28.0-37.0); MONOCYTES 3.5 %; MPV 7.4 fl. (7.2-11.1); NUCLEATED RBCS 0 /100WBC; POLYS 94.7 %; RBC 2.33 mil/uL (4.50-6.00); RDW-CV 14.5 % (10.5-14.5); WBC 2.7 thou/uL (4.0-11.0)
[2021-02-26 14:34] LABS: HEMATOCRIT 19.6 % (42.0-52.0); HEMOGLOBIN 6.5 gm/dL (14.0-18.0); PLATELET COUNT* 43 thou/uL (150-400)
[2021-02-26 14:53] LABS: APTT 45.6 Seconds (25.0-31.3); INR 1.7; PROTIME 17.1 Seconds (9.20-11.50)
[2021-02-26 14:57] LABS: CALCIUM 7.1 mg/dL (8.5-10.1); CREATININE 1.6 mg/dL (0.6-1.3); PHOSPHORUS* 2.3 mg/dL (2.5-4.9); POTASSIUM 3.9 mmol/L (3.5-5.1)
[2021-02-26 17:10] LABS: BE 1.2 mmol/L (-2 to +3); pH 7.339 (7.340-7.450)
[2021-02-26 17:13] LABS: PO2 51.9 mmHg (75.0-100.0)
[2021-02-26 17:31] LABS: BE 1.1 mmol/L (-2 to +3); PO2 72.4 mmHg (75.0-100.0); pH 7.337 (7.340-7.450)
[2021-02-26 17:35] LABS: PCO2 52.1 mmHg (35.0-45.0)
--- NOTE | 2021-02-26 17:50 | 2DMMODE ---
[place] [address] 2 D/M-MODE ECHOCARDIOGRAM Name: LUISA BRODY Room: [address] IN .R.#: [id number] Admission: 02/25/21 Attend Phys: Vignesh Keller Discharge: Date of : 42 Date of Service: 02/26/21 1750 Report #: [id number] THIS REPORT FOR: cc: Henrietta James Catherine FNP Liston, Michael J. MD [facility] ~ APPROVED REPORT Study performed: 02/26/2021 13:21:05 EXAM: Comprehensive 2D, Doppler, and color-flow Echocardiogram Patient Location: In-Patient BSA: 1.82 HR: 92 bpm BP: 93/55 mmHg Other Information Study Quality: Adequate Technically limited study due to patient on ventilator, inability to position patient. Indications Cardiac Arrest 2D Dimensions IVSd: 9.91 (7-11mm) LVOT Diam: 22.28 (18-24mm) LVDd: 36.73 mm PWd: 8.87 (7-11mm) Ascending Ao: 34.56 (22-36mm) LVDs: 27.98 (25-40mm) Aortic Root: 25.26 mm Volumes Left Atrial Volume (Systole) LA ESV Index: 21.40 mL/m2 Aortic Valve AoV Peak Jai.: 1.05 m/s AO Peak Gr.: 4.37 mmHg LVOT Max P.90 mmHg AO Mean Gr.: 2.28 mmHg LVOT Mean P.93 mmHg LVOT Max V: 0.99 m/s AO V2 VTI: 10.80 cm LVOT Mean V: 0.64 m/s TACOS (VTI): 8.19 cm2 LVOT V1 VTI: 22.71 [place] [address] 2 D/M-MODE ECHOCARDIOGRAM Name: LUISA BRODY Room: [address] IN ..#: [id number] Admission: 02/25/21 Attend Phys: Vignesh Keller Discharge: Date of : 42 Date of Service: 02/26/21 1750 Report #: [id number] Mitral Valve E/A Ratio: 1.36 MV Decel. Time: 138.13 ms MV E Max Jai.: 0.64 m/s MV PHT: 40.06 ms MVA (PHT): 5.49 cm2 TDI E/Lateral E': 10.67 E/Medial E': 7.11 Medial E' Jai.: 0.09 m/s Lateral E' Jai.: 0.06 m/s Pulmonary Valve PV Peak Jai.: 0.67 m/s PV Peak Gr.: 1.79 mmHg Tricuspid Valve RAP Estimate: 5.00 mmHg TR Peak Gr.: 27.88 mmHg RVSP: 32.88 mmHg PA Pressure: 32.88 mmHg Left Ventricle The left ventricle is normal size. There is normal LV segmental wall motion. There is normal left ventricular wall thickness. Left ventricular systolic function is normal. LVEF is 55-60%. Right Ventricle Right ventricle is dilated. The right ventricular systolic function is normal. Atria The left atrium size is normal. Right atrium is dilated. Aortic Valve The aortic valve is normal in structure. No aortic regurgitation is present. There is no aortic valvular stenosis. Mitral Valve The mitral valve is normal in structure. There is no mitral valve regurgitation noted. No evidence of mitral valve stenosis. Tricuspid Valve The tricuspid valve is normal in structure. Trace tricuspid regurgitation. Pulmonic Valve The pulmonary valve is normal in structure. There [place] [address] 2 D/M-MODE ECHOCARDIOGRAM Name: LUISA BRODY Room: [address]#: [id number] Admission: 02/25/21 Attend Phys: Vignesh Keller Discharge: Date of : 42 Date of Service: 02/26/21 1750 Report #: [id number] valvular regurgitation. Great Vessels The aortic root is normal in size. IVC is normal in size and collapses >50% with inspiration. Pericardium There is no pericardial effusion. <Conclusion> The left ventricle is normal size. There is normal left ventricular wall thickness. Left ventricular systolic function is normal. LVEF is 55-60%. Right atrium is dilated. Right ventricle is dilated. Trace tricuspid regurgitation. <ELECTRONICALLY SIGNED> By: William Roque MD, FACC 02/26/211749 49 49 William Roque MD, FACC /INF
[2021-02-26 18:12] LABS: ABSOLUTE MONOCYTES 0.1 thou/uL (0.0-1.2); ABSOLUTE NEUTROPHILS 3.4 thou/uL (1.6-8.1); BASOPHILS 0.1 %; EOSINOPHILS 0.1 %; HEMATOCRIT 22.4 % (42.0-52.0); HEMOGLOBIN 7.5 gm/dL (14.0-18.0); MCH 27.5 pg (26.0-34.0); MCHC 33.4 g/dL (28.0-37.0); MCV 82.4 fL (80.0-100.0); MONOCYTES 3.1 %; MPV 7.7 fl. (7.2-11.1); NUCLEATED RBCS 0 /100WBC; POLYS 95.7 %; RBC 2.72 mil/uL (4.50-6.00); RDW-CV 15.4 % (10.5-14.5); WBC 3.5 thou/uL (4.0-11.0)
[2021-02-26 18:26] LABS: CALCIUM 6.9 mg/dL (8.5-10.1); CREATININE 1.7 mg/dL (0.6-1.3)
[2021-02-26 18:32] LABS: PLATELET COUNT* 43 thou/uL (150-400)
--- NOTE | 2021-02-26 18:42 | CON ---
[facility] [address] [place] [address] CONSULTATION Name: LUISA BRODY Room: [address] M.R.#: [id number] Admission: 02/25/21 Attend Phys: David Lloyd Discharge: Date of : 42 Report #: [id number] THIS REPORT FOR: cc: Henrietta James Catherine FNP Pervez, Adeel MD ~ DATE OF CONSULTATION: 02/26/2021 Consult has been requested by Dr. Keller. INDICATION FOR CONSULTATION: Ventilator management/acute hypercarbic respiratory failure post-cardiac arrest. HISTORY OF PRESENT ILLNESS: This is a 80-year-old gentleman with past medical history as mentioned below. This does include a history of COPD. The patient is on oxygen as well as Trilogy while asleep long-term. He does have baseline elevation in pCO2 to around 53. His baseline creatinine is normal at 0.7. He does take prednisone at home. It is, however, not fully apparent to me from the records as to whether this represents intermittent or continuous long-term use of prednisone. The patient is now admitted with a cardiac arrest; therefore, he is unable to provide a history or review of systems. Information is therefore obtained from the chart as well as nursing staff. The patient is reported to have become unresponsive at home. His did CPR for 20 minutes. When EMS arrived, he was in cardiac arrest and he was given at least 3 rounds of epinephrine. Eventually, he did have a return of spontaneous circulation. Initially, a Combitube was placed in the field and this was switched over to an endotracheal tube subsequently. The patient initially was in shock, requiring high dose norepinephrine as well as phenylephrine to maintain blood pressure. He also was appropriately fluid resuscitated. When I was called during the night, the patient was also oxygenating adequately with 40% FiO2; however, it was very difficult to ventilate him on account of the fact that he had very high peak airway pressures. The patient at that time was fighting the ventilator and was not synchronizing well with the ventilator. Therefore, I had to put him on a pressure control mode of ventilation and I had to also increase his sedation. He therefore did receive a Versed as well as fentanyl drip during the night. This morning, the patient's sedation has been held at this time, he is only responding to painful stimuli. There is a significant improvement in his pressor needs. He is currently only on a low dose Levophed and phenylephrine is now off. He just received packed RBCs due to a drop in H and H. He is reported to have a GI bleed; however, I do not have [place] [id number] CONSULTATION Name: JO-ANNNICHOLELUISA W Room: [address] .R.#: [id number] Admission: 02/25/21 Attend Phys: David Lloyd Discharge: Date of : 42 Report #: [id number] resuscitation, he has essentially stopped making urine since last night, there are only around 50 mL out this morning. The patient's chest x-ray; however, does not show any significant pulmonary vascular congestion. He does have pedal edema. He has a central line in place. We do not have an arterial line. LFTs are markedly elevated as is a D-dimer. He did, however, have a CT chest performed last night. This is with contrast, but without IV dye, the report states that there are no obvious pulmonary emboli identified. PAST MEDICAL HISTORY: COPD, on oxygen long-term, on Trilogy device while asleep long-term, not fully clear from the records as to whether he is on long-term prednisone or not. Last available echocardiogram shows a normal left ventricular ejection fraction without elevation in right heart pressures, right hip surgery, tonsillectomy, prostate hypertrophy, several episodes of pneumonia, lung nodules, anxiety. SOCIAL HISTORY: He is an active smoker. He has been smoking for several decades. He has recently been reported to cut down to around a couple of cigarettes a day. No known history of heavy alcohol use or illegal drug use. CURRENT MEDICATIONS: List in [employer] reviewed. HOME MEDICATIONS: List in [employer] reviewed as well. Also, see discussion above. ALLERGIES: No known drug allergies. FAMILY HISTORY: No pertinent family history is known at this time. PHYSICAL EXAMINATION: GENERAL: He is responding only to painful stimuli. I have now been able to switch him over to assist control with 40% FiO2 and 5 of PEEP, tidal volume is 520, which is 8 mL per kg ideal body weight and respiratory rate is set at 20. He now has peak airway pressures in the low 30s. He was hard to ventilate and had high peak airway pressures during the night. He is on code ICE. VITAL SIGNS: Temperature last recorded at 32.8. Has a pulse of 92, blood pressure is 95/55 with low dose norepinephrine running. He is currently not overbreathing the ventilator. He is saturating 100%. HEENT: Head is normocephalic and atraumatic. Pupils are bilaterally constricted and poorly reactive. An endotracheal tube in place. NECK: Does not show raised JVP, asymmetry, mass or lymph nodes. CHEST: Symmetrical expansion on inspection and palpation. On auscultation, breath sounds are bilaterally equal, but decreased. I do not hear any added sounds. HEART: Regular. No murmur. [address] [place] [address] CONSULTATION Name: LUISA BRODY Room: [address] R.#: [id number] Admission: 02/25/21 Attend Phys: David Lloyd Discharge: Date of : 42 Report #: [id number] ABDOMEN: Soft, nontender. EXTREMITIES: Lower extremities do show 2+ edema. There is no obvious calf tenderness. SKIN: Dry and intact. NEUROLOGIC: He did respond to pain. There is no response to verbal commands. There is no obvious focal deficit. LABORATORY DATA: The patient's CT chest as well as chest x-rays are reviewed. There are extensive chronic changes. There is a unilateral pleural effusion and infiltrate at the right lung base on the CT, this finding is new compared with the CT of the abdomen and pelvis and chest x-rays performed during the recent admission in January, he may have a left-sided rib fracture related to CPR. CT head report and CT abdomen and pelvis report in [facility] reviewed. Lab work in [facility] also reviewed. ASSESSMENT AND PLAN: 1. Cardiac arrest/anoxic encephalopathy. Neurology service has been consulted. Unfortunately, there is suspicion of anoxic encephalopathy. We did need to give him sedation during the night to ventilate him and we may need to give more sedation now as well, which I understand will limit neurological evaluation. 2. Acute on chronic hypercarbic respiratory failure. I did need to give him significant amounts of Versed and fentanyl during the night in order to be able to ventilate him. At this time, sedation is on hold, we will follow; however, if he becomes dyssynchronous with the ventilator, we may need to give more sedation, order p.r.n. sedation so that we can try to avoid placing him back on Versed and fentanyl drips. I considered use of propofol; however, his LFTs are markedly elevated; therefore, I would try to avoid giving him propofol at this time. We will use fentanyl first and if needed, then use Versed. Ventilator was adjusted and repeat ABGs are ordered. 3. Pulmonary infiltrates/unilateral right-sided pleural effusion. These findings are new since January and are consistent with aspiration. We will continue with Zosyn. We will follow sputum culture that was sent yesterday. For now, we will avoid both linezolid as well as vancomycin. Potentially doxycycline can be added. I will follow. 4. Acute renal failure/shock. His pressor needs are much better; however, it is concerning to note that he has minimal urine output. We will flush the Foleys; however, there is no obvious obstruction. We will repeat labs now if he does not need more blood products and I plan to continue to give him more fluids as from a respiratory point of view, he should be able to tolerate them for now. I did order some albumin as well. 5. Chronic obstructive pulmonary disease exacerbation. We will try to limit steroid use; however, we had difficulty ventilating him during the night. Therefore, I did order Solu-Medrol. I will cut back dose. We will continue with the Duo[employer]. [address] [address] CONSULTATION Name: LUISA BRODY Room: [address] M.R.#: [id number] Admission: 02/25/21 Attend Phys: David Lloyd Discharge: Date of : 42 Report #: [id number] 6. Acute gastrointestinal bleed. There is no obvious blood in the OG at this time, it is not known to me as to whether there was some yesterday. Regardless, he is on Protonix drip and there is a significant drop in H and H. He did receive packed RBCs today. 7. Markedly elevated D-dimer. Consider the possibility of pulmonary emboli; however, there is no obvious pulmonary emboli noted on the CT chest performed last night. He also will be very high risk to anticoagulate considering suspected GI bleed as well as thrombocytopenia. Regardless, I do recommend that we should do an echo and that we should also do venous Dopplers. 8. History of lung nodules. I do not identify any obvious nodules on the CT now. If he does survive this episode, then I will plan to obtain a CT chest without contrast in 3-6 months again. 9. Elevated troponin I. Defer followup to Cardiology Service. We will try to limit steroid as above. 10. Shock liver. There is marked elevation in LFTs. We will follow. We will also check a lipase level. 11. Hyperglycemia, insulin sliding scale. The patient is critically ill at this time. Total time spent providing critical care to this patient today exceeds 55 minutes. <ELECTRONICALLY SIGNED> By: Des Robertson MD 02/26/21 1842 [id number] Robertson MD /nt
[2021-02-27] VITALS (45 sets, daily range): BP systolic 93–135; BP diastolic 44–86
[2021-02-27 04:32] LABS: ABSOLUTE MONOCYTES 0.1 thou/uL (0.0-1.2); ABSOLUTE NEUTROPHILS 4.3 thou/uL (1.6-8.1); BASOPHILS 0.2 %; EOSINOPHILS 0.1 %; HEMATOCRIT 20.7 % (42.0-52.0); LYMPHOCYTES 0.8 %; MCH 27.6 pg (26.0-34.0); MCHC 33.8 g/dL (28.0-37.0); MCV 81.7 fL (80.0-100.0); MONOCYTES 1.9 %; MPV 7.9 fl. (7.2-11.1); NUCLEATED RBCS 0 /100WBC; RBC 2.54 mil/uL (4.50-6.00); RDW-CV 16.3 % (10.5-14.5); WBC 4.5 thou/uL (4.0-11.0)
[2021-02-27 04:35] LABS: PLATELET COUNT* 42 thou/uL (150-400)
[2021-02-27 04:51] LABS: ALBUMIN 2.9 g/dL (3.4-5.0); POTASSIUM 4.2 mmol/L (3.5-5.1); TOTAL BILIRUBIN 2.1 mg/dL (<0.1-1.0); TOTAL PROTEIN 4.6 g/dL (6.4-8.2)
--- NOTE | 2021-02-27 06:48 | NUR ---
Pt remains poorly responsive to all except painful stimulus, and while he is intubated, he is receiving minimal sedation. IVP versed was given x 3, but once it wore off, he would start to shiver, causing tachycardia, and hyperthermia, the versed drip was restarted at 2 mg/hr, with good results. Urine output is decreased, BUN/Creat are not significantly elevated from previous values. See labs for abnormal values.
[2021-02-27 08:33] LABS: BE 0.2 mmol/L (-2 to +3); PCO2 42.1 mmHg (35.0-45.0); PO2 106.4 mmHg (75.0-100.0); pH 7.394 (7.340-7.450)
--- NOTE | 2021-02-27 09:05 | NUR ---
ICU Rounds: Patient remains on vent (FiO2 35% and peep 5). Continued abx, fent. EEG planned today per Neuro once patient was warmed. CT or MRI planned post EEG depending on results. CM To continue to follow
[2021-02-27 11:34] LABS: HEMATOCRIT 21.3 % (42.0-52.0); HEMOGLOBIN 7.2 gm/dL (14.0-18.0); MCH 27.6 pg (26.0-34.0); MCHC 33.9 g/dL (28.0-37.0); MCV 81.3 fL (80.0-100.0); MPV 7.6 fl. (7.2-11.1); NUCLEATED RBCS 0 /100WBC; RBC 2.62 mil/uL (4.50-6.00); RDW-CV 16.3 % (10.5-14.5); WBC 4.8 thou/uL (4.0-11.0)
[2021-02-27 11:36] LABS: PLATELET COUNT* 40 thou/uL (150-400)
[2021-02-27 11:37] LABS: CALCIUM 6.9 mg/dL (8.5-10.1); CREATININE 2.3 mg/dL (0.6-1.3); MAGNESIUM 1.9 mg/dL (1.8-2.4); POTASSIUM 4.3 mmol/L (3.5-5.1)
[2021-02-27 11:54] LABS: APTT 45.1 Seconds (25.0-31.3); INR 1.5; PROTIME 15.7 Seconds (9.20-11.50)
[2021-02-27 13:13] LABS: ABSOLUTE NEUTROPHILS 4.7 thou/uL (1.6-8.1)
[2021-02-28] VITALS (41 sets, daily range): BP systolic 86–151; BP diastolic 42–128
[2021-02-28 05:13] LABS: ABSOLUTE LYMPHOCYTES 0.1 thou/uL (0.8-5.3); ABSOLUTE MONOCYTES 0.2 thou/uL (0.0-1.2); ABSOLUTE NEUTROPHILS 8.3 thou/uL (1.6-8.1); BASOPHILS 0.1 %; EOSINOPHILS 0.1 %; HEMATOCRIT 22.7 % (42.0-52.0); HEMOGLOBIN 7.4 gm/dL (14.0-18.0); LYMPHOCYTES 1.5 %; MCH 27.3 pg (26.0-34.0); MCHC 32.8 g/dL (28.0-37.0); MCV 83.2 fL (80.0-100.0); MONOCYTES 1.8 %; MPV 8.1 fl. (7.2-11.1); NUCLEATED RBCS 0 /100WBC; POLYS 96.5 %; RBC 2.73 mil/uL (4.50-6.00); RDW-CV 16.8 % (10.5-14.5); WBC 8.6 thou/uL (4.0-11.0)
[2021-02-28 05:23] LABS: PLATELET COUNT* 35 thou/uL (150-400)
[2021-02-28 05:43] LABS: ALBUMIN 3.1 g/dL (3.4-5.0); CREATININE 2.8 mg/dL (0.6-1.3); MAGNESIUM 1.8 mg/dL (1.8-2.4); POTASSIUM 4.8 mmol/L (3.5-5.1); TOTAL BILIRUBIN 1.3 mg/dL (<0.1-1.0)
[2021-02-28 09:06] LABS: BE -3.9 mmol/L (-2 to +3); PCO2 48.1 mmHg (35.0-45.0); PO2 104.8 mmHg (75.0-100.0)
[2021-02-28 09:08] LABS: pH 7.289 (7.340-7.450)
[2021-02-28 15:10] LABS: BE -5.1 mmol/L (-2 to +3); PCO2 43.6 mmHg (35.0-45.0)
[2021-02-28 15:26] LABS: PO2 91.4 mmHg (75.0-100.0)
--- NOTE | 2021-02-28 15:27 | NUR ---
ICU Rounds: Patient remains on vent (FiO2 35% and Peep 5). Continued abx, protonix gtt and TF. EEG done today to determine brain activity. Patient to remain through the weekend. CM to continue to follow
--- NOTE | 2021-02-28 18:47 | NUR ---
REASSESSMENTS UNCHANGED.
--- NOTE | 2021-02-28 18:49 | NUR ---
REASSESSMENTS CHARTED WITH CHANGES ONLY FROM THE FIRST ASSESSMENT.
[2021-03-01] VITALS (42 sets, daily range): BP systolic 118–207; BP diastolic 57–172
[2021-03-01 04:55] LABS: ABSOLUTE LYMPHOCYTES 0.1 thou/uL (0.8-5.3); ABSOLUTE MONOCYTES 0.2 thou/uL (0.0-1.2); ABSOLUTE NEUTROPHILS 11.6 thou/uL (1.6-8.1); BASOPHILS 0.1 %; HEMOGLOBIN 7.5 gm/dL (14.0-18.0); LYMPHOCYTES 1.2 %; MCH 27.2 pg (26.0-34.0); MCHC 32.7 g/dL (28.0-37.0); MCV 83.2 fL (80.0-100.0); MONOCYTES 1.5 %; MPV 8.5 fl. (7.2-11.1); NUCLEATED RBCS 0 /100WBC; POLYS 97.2 %; RBC 2.77 mil/uL (4.50-6.00); RDW-CV 16.7 % (10.5-14.5); WBC 11.9 thou/uL (4.0-11.0)
[2021-03-01 05:03] LABS: ALBUMIN 2.9 g/dL (3.4-5.0); CALCIUM 7.6 mg/dL (8.5-10.1); CREATININE 3.4 mg/dL (0.6-1.3); MAGNESIUM 1.9 mg/dL (1.8-2.4); TOTAL BILIRUBIN 1.1 mg/dL (<0.1-1.0); TOTAL PROTEIN 4.9 g/dL (6.4-8.2)
[2021-03-01 05:16] LABS: PLATELET COUNT* 42 thou/uL (150-400)
[2021-03-01 05:22] LABS: HEMATOCRIT 22.9 % (42.0-52.0); HEMOGLOBIN 7.5 gm/dL (14.0-18.0); MCH 27.1 pg (26.0-34.0); MCHC 32.9 g/dL (28.0-37.0); MCV 82.6 fL (80.0-100.0); MPV 8.5 fl. (7.2-11.1); RBC 2.77 mil/uL (4.50-6.00); RDW-CV 16.3 % (10.5-14.5); WBC 11.7 thou/uL (4.0-11.0)
[2021-03-01 09:27] LABS: BE -4.7 mmol/L (-2 to +3); PCO2 35.7 mmHg (35.0-45.0); PO2 106.3 mmHg (75.0-100.0); pH 7.366 (7.340-7.450)
--- NOTE | 2021-03-01 19:47 | NUR ---
REASSESSMENTS UNCHANGED FROM 0800. ATIVAN GIVEN FOR SIEZURE LIKE ACTIVITY. FAMILY PLANNING ON COMFORT CARE TOMORROW.
[2021-03-02] VITALS (7 sets, daily range): BP systolic 129–148; BP diastolic 60–81
[2021-03-02 05:12] LABS: ALBUMIN 2.9 g/dL (3.4-5.0); POTASSIUM 5.5 mmol/L (3.5-5.1)
[2021-03-02 05:19] LABS: CREATININE 4.4 mg/dL (0.6-1.3)
[2021-03-02 05:48] LABS: HEMOGLOBIN 7.8 gm/dL (14.0-18.0); MCHC 32.7 g/dL (28.0-37.0); MCV 82.4 fL (80.0-100.0); MPV 8.3 fl. (7.2-11.1); RBC 2.91 mil/uL (4.50-6.00); RDW-CV 16.4 % (10.5-14.5); WBC 12.6 thou/uL (4.0-11.0)
--- NOTE | 2021-03-02 19:20 | NUR ---
NO CHANGES FROM PREVIOUS ASSESSMENT. PATIENT'S FAMILY DISCUSSED WITH DR. MENDENHALL PATIENTS CONDITION AND PROGNOSIS. FAMILY DECIDED TO DO COMFORT CARE WITH EXTUBATION. EXTUBATED AT 1530. TRANSFERRED TO ROOM 311. PATIENTS FAMILY UPDATED ON ROOM CHANGE.
--- NOTE | 2021-03-03 00:03 | NUR ---
PATIENT TRANSFERED FROM ICU BY BED AT 1915. PATIENT IS NOW COMFORT CARE. DO NOT RESUSCITATE. PATIENT'S EYES ARE OPEN BUT NO APPARENT RESPONSES OBSERVED WITH CARES, TURNS, ETC. VITAL SIGNS STABLE AT 2100. VERY MINAMAL AMOUNTS OF URINE IN HIDALGO CATHETER TUBING. BREATH/LUNG SOUNDS COARSE. FALL PRECAUTIONS IN PLACE. TURNING FOR COMFORT Q2H. CONTINUE TO MONITOR.
--- NOTE | 2021-03-03 06:51 | NUR ---
PATIENT AT 0405. PRONOUNCED BY 2 RN'S PER PROTOCOL. PROCEDURES IN PROGRESS. BOTH TIFFANY AND SON TENA HAVE ARRIVED. GOLD RING FROM [employer] HAS BEEN SIGNED INTO 'S HAND. AWAITING CALL BACK FROM [employer] REGARDING POSSIBLE EYE OR TISSUE DONATION. PATIENT WILL GO TO THE [facility] WHEN FAMILY LEAVES UNTIL OK'D BY [employer] FOR PICK-UP BY [facility].
--- NOTE | 2021-03-03 07:56 | NUR ---
CALLS TO ANSWERING SERVICE FOR DR. SALAS, DR. MARTELL AND DR. FERGUSON ALL CONSULTING COURTESY CALL PROVIDED REGARDING PATIENT PASSING.
== END 2021-03-03 04:05 | DRG 870 ==
LOC: M.ERS 11:08 → M.ICU 12:20 → M.TBA-ER 12:20 → M.ICU 13:04 → M.3W 03-02 19:15
PROVIDERS: Family Medicine; Internal Medicine; Internal Medicine Critical Care Medicine; ADMIT Internal Medicine; ATTEND Internal Medicine
PROC: 02HV33Z Insertion of Infusion Device into Superior Vena Cava, Percutaneous Approach (ICD-10-PCS; principal; 2021-02-25)
PROC: B548ZZA Ultrasonography of Superior Vena Cava, Guidance (ICD-10-PCS; principal; 2021-02-25)
PROC: 5A1955Z Respiratory Ventilation, Greater than 96 Consecutive Hours (ICD-10-PCS; principal; 2021-02-25)
PROC: 5A12012 Performance of Cardiac Output, Single, Manual (ICD-10-PCS; principal; 2021-02-25)
PROC: 0BH17EZ Insertion of Endotracheal Airway into Trachea, Via Natural or Artificial Opening (ICD-10-PCS; principal; 2021-02-25)
PROC: 30233N1 Transfusion of Nonautologous Red Blood Cells into Peripheral Vein, Percutaneous Approach (ICD-10-PCS; 2021-02-26)
DX: A41.9 Sepsis, unspecified organism (principal); J69.0 Pneumonitis due to inhalation of food and vomit; J96.22 Acute and chronic respiratory failure with hypercapnia; K72.00 Acute and subacute hepatic failure without coma; N17.0 Acute kidney failure with tubular necrosis; J96.21 Acute and chronic respiratory failure with hypoxia; J15.6 Pneumonia due to other Gram-negative bacteria; N39.0 Urinary tract infection, site not specified; K92.2 Gastrointestinal hemorrhage, unspecified; G93.1 Anoxic brain damage, not elsewhere classified; J44.1 Chronic obstructive pulmonary disease with (acute) exacerbation; D62 Acute posthemorrhagic anemia; B48.8 Other specified mycoses; I46.9 Cardiac arrest, cause unspecified; Z20.822 Contact with and (suspected) exposure to COVID-19; F41.9 Anxiety disorder, unspecified; R73.9 Hyperglycemia, unspecified; I25.10 Atherosclerotic heart disease of native coronary artery without angina pectoris; D69.6 Thrombocytopenia, unspecified; N40.1 Benign prostatic hyperplasia with lower urinary tract symptoms; F17.210 Nicotine dependence, cigarettes, uncomplicated; I95.9 Hypotension, unspecified; E83.51 Hypocalcemia; Z66 Do not resuscitate; Z87.81 Personal history of (healed) traumatic fracture; Z51.5 Encounter for palliative care